=== PATIENT | male | born 1940 | race Caucasian/White ===

== ENCOUNTER 2016-12-20 14:15 | Emergency (ER) | payer OTHER ==
--- NOTE | 2016-12-20 14:27 | ER Document Report ---
ED Medical Screen (RME) - General Stated Complaint: DIFFICULTY BREATHING Mode of Arrival: Wheelchair Information source: Patient Notes: Patient presents to the emergency department with complaints of difficulty breathing. He reports he has trouble just walking across the floor. [facility] Denies chest pain I have greeted and performed a rapid initial assessment of this patient. A comprehensive ED assessment and evaluation of the patient, analysis of test results and completion of the medical decision making process will be conducted by additional ED providers. TRAVEL OUTSIDE OF THE [place] IN LAST 30 DAYS: No - Related Data Allergies/Adverse Reactions: tetracycline [Tetracycline] Allergy (Severe, Verified 12/20/16 14:24) Blisters Past Medical History - Past Medical History Cardiac Medical History: Reports: Hx Heart Attack - 1995, Hx Hypercholesterolemia, Hx Hypertension Denies: Hx Coronary Artery Disease Pulmonary Medical History: Reports: Hx COPD Denies: Hx Asthma, Hx Bronchitis, Hx Pneumonia, Hx Tuberculosis Neurological Medical History: Denies: Hx Cerebrovascular Accident, Hx Seizures Endocrine Medical History: Reports: Hx Diabetes Mellitus Type 2 GI Medical History: Denies: Hx Hepatitis, Hx Hiatal Hernia, Hx Ulcer Musculoskeltal Medical History: Denies Hx Arthritis Infectious Medical History: Denies: Hx Hepatitis Past Surgical History: Reports: Hx Appendectomy, Hx Bowel Surgery - ilestomy. Denies: Hx Open Heart Surgery, Hx Pacemaker - Immunizations Hx Diphtheria, Pertussis, Tetanus Vaccination: Yes Physical Exam - Vital signs Vitals: Temp Pulse Resp BP Pulse Ox 97.8 F 58 L 18 138/51 H 92 12/20/16 14:22 12/20/16 14:22 12/20/16 14:22 12/20/16 14:22 12/20/16 14:22 Course - Vital Signs Vital signs: Temp Pulse Resp BP Pulse Ox 97.8 F 58 L 18 138/51 H 92 12/20/16 14:22 12/20/16 14:22 12/20/16 14:22 12/20/16 14:22 12/20/16 14:22
[2016-12-20 15:13] LABS: ABSOLUTE BASOPHILS # (AUTO) 0.1 10^3/uL (0.0-0.2); ABSOLUTE EOSINOPHILS # (AUTO) 0.2 10^3/uL (0.0-0.6); ABSOLUTE LYMPHOCYTES (AUTO) 1.2 10^3/uL (0.5-4.7); ABSOLUTE MONOCYTES (AUTO) 0.5 10^3/uL (0.1-1.4); ABSOLUTE NEUT (AUTO) 5.2 10^3/uL (1.7-8.2); BASOPHILS % (AUTO) 0.8 % (0-2); EOSINOPHILS % (AUTO) 3.2 % (0-6); HEMATOCRIT 45.7 % (37.9-51.0); HGB HCT DIFFERENCE -3.7; LYMPHOCYTES % (AUTO) 17.3 % (13-45); MEAN CORPUSCULAR HEMOGLOBIN 26.6 pg (27.0-33.4); MEAN CORPUSCULAR HGB CONC 30.6 g/dL (32.0-36.0); MEAN CORPUSCULAR VOLUME 87 fl (80-97); MONOCYTES % (AUTO) 6.8 % (3-13); RED BLOOD COUNT 5.26 10^6/uL (4.35-5.55); RED CELL DISTRIBUTION WIDTH 17.6 % (11.5-14.0); SEGMENTED NEUTROPHILS % (AUTO) 71.9 % (42-78); WHITE BLOOD COUNT 7.2 10^3/uL (4.0-10.5)
[2016-12-20 15:34] LABS: ALANINE AMINOTRANSFERASE 46 U/L (21-72); ALBUMIN 3.8 g/dL (3.5-5.0); ALKALINE PHOSPHATASE 86 U/L (38-126); ANION GAP 13 (5-19); ASPARTATE AMINO TRANSFERASE 34 U/L (17-59); BILIRUBIN,TOTAL 0.6 mg/dL (0.2-1.3); BLOOD UREA NITROGEN 21 mg/dL (7-20); CALCIUM 8.6 mg/dL (8.4-10.2); CARBON DIOXIDE 32 mmol/L (22-30); CHLORIDE 98 mmol/L (98-107); CREATINE KINASE 107 U/L (55-170); CREATININE RESULT 1.34 mg/dL (0.52-1.25); GLUCOSE 157 mg/dL (75-110); POTASSIUM 3.5 mmol/L (3.6-5.0); SODIUM 142.8 mmol/L (137-145); TOTAL PROTEIN 7.1 g/dL (6.3-8.2)
[2016-12-20 15:46] LABS: CREATINE KINASE MB 1.62 ng/mL (<4.55); TROPONIN I 0.032 ng/mL
--- NOTE | 2016-12-20 17:30 | ER Document Report ---
ED General - General Chief Complaint: Breathing Difficulty Stated Complaint: DIFFICULTY BREATHING Mode of Arrival: Wheelchair Notes: This is a 76-year-old male who presents because [facility] and was told he needed to come to the ER because his lungs were filled up with fluid. Patient states that he has chronic shortness of breath but no change in his shortness of breath recently. He denies any chest pain. No fever. He states a slight chronic cough which is nonproductive. He did quit smoking for 10 years but began smoking again one year ago "in hopes that it would kill me". He complains of daily chronic pain for which she used to take narcotics [id number]. He states his [facility] will no longer prescribe and he only can take them at bedtime now. He denies feeling suicidal. He states he really wants to go home because he's been waiting so long and states he feels absolutely fine. TRAVEL OUTSIDE OF THE [place] IN LAST 30 DAYS: No - Related Data Allergies/Adverse Reactions: tetracycline [Tetracycline] Allergy (Severe, Verified 12/20/16 14:24) Blisters Past Medical History - General Information source: Patient - Social History Smoking Status: Current Every Day Smoker Chew tobacco use (# tins/day): No Frequency of alcohol use: None Drug Abuse: None Family History: Reviewed & Not Pertinent Patient has suicidal ideation: No Patient has homicidal ideation: No - Past Medical History Cardiac Medical History: Reports: Hx Heart Attack - 1995, Hx Hypercholesterolemia, Hx Hypertension Denies: Hx Coronary Artery Disease Pulmonary Medical History: Reports: Hx COPD Denies: Hx Asthma, Hx Bronchitis, Hx Pneumonia, Hx Tuberculosis Neurological Medical History: Denies: Hx Cerebrovascular Accident, Hx Seizures Endocrine Medical History: Reports: Hx Diabetes Mellitus Type 2 Renal/ Medical History: Denies: Hx Peritoneal Dialysis GI Medical History: Denies: Hx Hepatitis, Hx Hiatal Hernia, Hx Ulcer Musculoskeltal Medical History: Denies Hx Arthritis Infectious Medical History: Denies: Hx Hepatitis Past Surgical History: Reports: Hx Appendectomy, Hx Bowel Surgery - ilestomy. Denies: Hx Open Heart Surgery, Hx Pacemaker - Immunizations Hx Diphtheria, Pertussis, Tetanus Vaccination: Yes Review of Systems - Review of Systems Constitutional: denies: Fever, Malaise EENT: denies: Throat pain Cardiovascular: denies: Chest pain, Syncope Respiratory: See HPI Gastrointestinal: denies: Abdominal pain, Vomiting Musculoskeletal: Leg swelling Skin: denies: Rash Hematologic/Lymphatic: denies: Swollen glands Neurological/Psychological: denies: Numbness, Tingling Physical Exam - Vital signs Vitals: Temp Pulse Resp BP Pulse Ox 97.8 F 58 L 18 138/51 H 92 12/20/16 14:22 12/20/16 14:22 12/20/16 14:22 12/20/16 14:22 12/20/16 14:22 - General General appearance: Alert In distress: None Notes: Standing in the doorway, normally conversant, smiling and affable and in no acute respiratory distress - HEENT Head: Normocephalic Eyes: Normal, Other - Prominent arcus senilis Pupils: PERRL Nasal: Normal Mouth/Lips: Normal Mucous membranes: Normal Pharynx: Normal Neck: Normal - Respiratory Respiratory status: No respiratory distress Chest status: Nontender Breath sounds: Rales - Few scattered bibasilar rales - Cardiovascular Rhythm: Regular - Abdominal Inspection: Normal Tenderness: Nontender - Back Back: Normal - Extremities General upper extremity: Normal inspection, Normal strength General lower extremity: Edema, Other - Patient has Coban wrap bilaterally - Neurological Orientation: AAOx4 - Psychological Associated symptoms: Normal affect - Skin Skin Temperature: Warm Skin Moisture: Dry Skin Color: Normal Character of irregularity: Patchy Course - Re-evaluation Re-evalutation: 12/20/16 18:19 Patient states he is at his baseline and didn't want to come to the ER. He states [facility] told him to take an extra dose of Lasix this evening. He does not want to stay. He is well-appearing and ambulating without apparent respiratory difficulty. He states he will take the extra Lasix as he was directed and follow-up. - Vital Signs Vital signs: Temp Pulse Resp BP Pulse Ox 97.4 F 61 18 148/69 H 89 L 12/20/16 18:07 12/20/16 18:07 12/20/16 18:07 12/20/16 18:07 12/20/16 18:07 - Laboratory Result Diagrams: 12/20/16 14:35 12/20/16 14:35 Laboratory results interpreted by me: 0112/20/16 12/20/16 14:35 14:35 14:35 MCH 26.6 L MCHC 30.6 L RDW 17.6 H Plt Count 138 L Potassium 3.5 L Carbon Dioxide 32 H BUN 21 H Creatinine 1.34 H Est GFR (Non-Af Amer) 52 L Glucose 157 H NT-Pro-B Natriuret Pep 523 H - Diagnostic Test Radiology reviewed: Image reviewed, Reports reviewed - EKG Interpretation by Me EKG shows normal: Sinus rhythm Rate: Normal Rhythm: NSR - 60 Discharge - Discharge Clinical Impression: Shortness of breath Congestive heart failure (CHF) Qualifiers: Congestive heart failure type: unspecified congestive heart failure type Congestive heart failure chronicity: chronic Qualified Code(s): I50.9 - Heart failure, unspecified Condition: Stable Disposition: HOME, SELF-CARE Additional Instructions: take your Lasix as directed with an extra dose this evening. Follow up at the [facility]. REturn to ER if you are feeling more short of breath than your usual , develop chest pain or fever, or have any new concerns.
[2016-12-20 18:08] VITALS: BP 148/69
--- NOTE | 2016-12-20 19:24 | EKG REPORT ---
SEVERITY:- ABNORMAL ECG - SINUS RHYTHM FIRST DEGREE AV BLOCK LVH WITH IVCD AND SECONDARY REPOL ABNRM : Confirmed by: Danika Lenz MD 20-Dec-2016 19:22:57
== END 2016-12-20 18:07 | disposition home or self-care (01) ==
LOC: ER 14:15
DX: I11.0 Hypertensive heart disease with heart failure (principal); I50.9 Heart failure, unspecified; J44.9 Chronic obstructive pulmonary disease, unspecified; R06.02 Shortness of breath; I25.2 Old myocardial infarction; F17.200 Nicotine dependence, unspecified, uncomplicated; E11.9 Type 2 diabetes mellitus without complications; G89.29 Other chronic pain; Z79.891 Long term (current) use of opiate analgesic; Z88.1 Allergy status to other antibiotic agents; Z79.899 Other long term (current) drug therapy
CPT/HCPCS: 36415; 71020; 80053; 82550; 82553; 83880; 84484; 85025; 93005; 93010; 99285

== ENCOUNTER 2017-08-16 14:06 | Inpatient (IN) | payer OTHER, MEDICARE ==
--- NOTE | 2017-08-16 14:41 | ER Document Report ---
ED Extremity Problem, Lower - General Chief Complaint: Skin Problem Stated Complaint: LEFT FOOT PAIN Time Seen by Provider: 08/16/17 14:29 Notes: Patient is a 76-year-old male who suffers from type 2 diabetes, chronic venous stasis, diabetic neuropathy, hypertension, hyperlipidemia who presents emergency department after referral from the [facility] for diabetic ulcer in his left foot. Patient states that he goes to the [facility] every 6-8 weeks for evaluation of his feet and he states that he thinks that this wound is approximately 1 week old. He denies any pain, drainage, fevers, chills, lethargy. TRAVEL OUTSIDE OF THE [place] IN LAST 30 DAYS: No - Related Data Allergies/Adverse Reactions: tetracycline [Tetracycline] Allergy (Severe, Verified 08/16/17 14:13) Blisters Past Medical History - Social History Smoking Status: Current Every Day Smoker Family History: Reviewed & Not Pertinent - Past Medical History Cardiac Medical History: Reports: Hx Heart Attack - 1995, Hx Hypercholesterolemia, Hx Hypertension Denies: Hx Coronary Artery Disease Pulmonary Medical History: Reports: Hx COPD Denies: Hx Asthma, Hx Bronchitis, Hx Pneumonia, Hx Tuberculosis Neurological Medical History: Denies: Hx Cerebrovascular Accident, Hx Seizures Endocrine Medical History: Reports: Hx Diabetes Mellitus Type 2 Renal/ Medical History: Denies: Hx Peritoneal Dialysis GI Medical History: Denies: Hx Hepatitis, Hx Hiatal Hernia, Hx Ulcer Musculoskeltal Medical History: Denies Hx Arthritis Infectious Medical History: Denies: Hx Hepatitis Past Surgical History: Reports: Hx Appendectomy, Hx Bowel Surgery - ilestomy. Denies: Hx Open Heart Surgery, Hx Pacemaker - Immunizations Hx Diphtheria, Pertussis, Tetanus Vaccination: Yes Review of Systems - Review of Systems Constitutional: No symptoms reported Cardiovascular: No symptoms reported Respiratory: No symptoms reported Gastrointestinal: No symptoms reported Skin: See HPI Hematologic/Lymphatic: See HPI -: Yes All other systems reviewed and negative Physical Exam - Vital signs Vitals: Temp Pulse Resp BP Pulse Ox 99.9 F 94 19 133/57 H 88 L 08/16/17 14:08 08/16/17 14:08 08/16/17 14:08 08/16/17 14:08 08/16/17 14:08 - General General appearance: Appears well, Alert In distress: None - Respiratory Respiratory status: No respiratory distress Chest status: Nontender Breath sounds: Normal Chest palpation: Normal - Cardiovascular Rhythm: Regular Heart sounds: Normal auscultation, S1 appreciated, S2 appreciated Murmur: No Gallop: None auscultated Pulses: Normal: Radial, Dorsalis pedis Normal capillary refill: Yes - Extremities General lower extremity: Nontender, Edema, Normal ROM, Normal strength, Normal temperature, Normal weight bearing. No: Normal color - erythema, Jeff's sign - Skin Skin Temperature: Warm Skin Moisture: Dry Skin Color: Erythema, Ashen Skin Turgor: Edematous - 2+ Skin irregularity: other - ulceration with necrotic tissue Location of irregularity: Extremities - left foot Course - Re-evaluation Re-evalutation: 08/16/17 16:38 Patient is a 76-year-old male who is hemodynamically stable, no acute distress afebrile. Presentation is concerning for diabetic foot ulcer with concern for underlying osteomyelitis. Presentation on x-ray shows evidence of gas production and concern for osteomyelitis of the fifth metatarsal and phalanx. CBC shows mild elevation of white blood cell count with mild left shift. Otherwise CMP consistent with underlying CKD. Given concern for osteomyelitis and need for debridement, pes patient was discussed with Dr. Richards who agrees with n.p.o. and admission for surgical evaluation. Patient has received Invanz and Vanco for osteomyelitis. Patient is agreeable with plan. 08/16/17 18:13 Dr. Richards has evaluated the patient at the bedside who is recommending hospitalist admission and surgery to consult. Patient to be n.p.o. for surgery tomorrow for amputation of the left fifth metatarsal and phalanx due to concern for osteomyelitis and overlying cellulitis. 08/16/17 20:00 Patient has been accepted by hospitalist Dr. Patten for admission. - Vital Signs Vital signs: Temp Pulse Resp BP Pulse Ox 98.8 F 83 24 H 118/65 91 L 08/16/17 14:09 08/16/17 14:09 08/16/17 22:01 08/16/17 22:00 08/16/17 21:13 - Laboratory Result Diagrams: 08/16/17 15:21 08/16/17 15:21 Laboratory results interpreted by me: 08/16/17 08/16/17 08/16/17 15:21 15:21 15:21 WBC 16.4 H RDW 14.6 H Seg Neuts % (Manual) 87 H Lymphocytes % (Manual) 5 L Abs Neuts (Manual) 14.3 H Sodium 135.0 L Chloride 95 L BUN 29 H Creatinine 1.46 H Est GFR ( Amer) 57 L Est GFR (Non-Af Amer) 47 L Glucose 189 H Direct Bilirubin 0.5 H NT-Pro-B Natriuret Pep 3080 H Urine Protein Urine Glucose (UA) Urine Blood 08/16/17 19:09 WBC RDW Seg Neuts % (Manual) Lymphocytes % (Manual) Abs Neuts (Manual) Sodium Chloride BUN Creatinine Est GFR ( Amer) Est GFR (Non-Af Amer) Glucose Direct Bilirubin NT-Pro-B Natriuret Pep Urine Protein 100 H Urine Glucose (UA) 50 H Urine Blood MODERATE H - Diagnostic Test Radiology reviewed: Image reviewed, Reports reviewed Discharge - Discharge Clinical Impression: Ulcer of foot due to diabetes Qualifiers: Diabetic foot ulcer location: toe Diabetes mellitus type: type 2 Laterality: left Non-pressure ulcer stage: with necrosis of bone Qualified Code(s): E11.621 - Type 2 diabetes mellitus with foot ulcer Condition: Stable Disposition: ADMITTED INPATIENT
[2017-08-16] MEDS ORDERED: VANCOMYCIN HCL INJ 1000 MG VIAL IV ONE ×2 (15:12→19:29)
[2017-08-16] MEDS ORDERED: ERTAPENEM SODIUM INJ 1 GM VIAL IV ONE (15:12)
--- NOTE | 2017-08-16 15:30 | RADIOLOGY REPORT (SQ) ---
EXAM DESCRIPTION: FOOT LEFT COMPLETE COMPLETED DATE/TIME: 08/16/2017 3:16 pm REASON FOR STUDY: diabetic ulcer COMPARISON: None. NUMBER OF VIEWS: Three views. TECHNIQUE: AP, lateral and oblique radiographic images acquired of the left foot. LIMITATIONS: Artifact from sock treads FINDINGS: There is soft tissue gas surrounding the right 5th metatarsophalangeal joint. Underlying 5th metatarsal head and base proximal phalanx exhibits mild decreased bone density which likely indic ates early osteomyelitis. No fracture. Remainder of the bones of the left foot are otherwise unremarkable. Diffuse forefoot soft tissue swelling IMPRESSION: Soft tissue gas surrounding the right 5th metatarsophalangeal joint worrisome for infect ion. Decreased bony density of the 5th metatarsal head and base left 5th toe proximal phalanx worrisome fo r osteomyelitis. TECHNICAL DOCUMENTATION: JOB ID: [id number] [employer]- All Rights Reserved
[2017-08-16 15:37] LABS: HEMATOCRIT 42.5 % (37.9-51.0); HEMOGLOBIN 14.6 g/dL (13.5-17.0); HGB HCT DIFFERENCE 1.3; MEAN CORPUSCULAR HEMOGLOBIN 32.2 pg (27.0-33.4); MEAN CORPUSCULAR HGB CONC 34.3 g/dL (32.0-36.0); MEAN CORPUSCULAR VOLUME 94 fl (80-97); RED BLOOD COUNT 4.52 10^6/uL (4.35-5.55); RED CELL DISTRIBUTION WIDTH 14.6 % (11.5-14.0); WHITE BLOOD COUNT 16.4 10^3/uL (4.0-10.5)
[2017-08-16 15:52] LABS: ALANINE AMINOTRANSFERASE 27 U/L (21-72); ALBUMIN 3.9 g/dL (3.5-5.0); ALKALINE PHOSPHATASE 71 U/L (38-126); ANION GAP 14 (5-19); ASPARTATE AMINO TRANSFERASE 22 U/L (17-59); BILIRUBIN,DIRECT 0.5 mg/dL (0.0-0.4); BLOOD UREA NITROGEN 29 mg/dL (7-20); CALCIUM 9.2 mg/dL (8.4-10.2); CARBON DIOXIDE 26 mmol/L (22-30); CHLORIDE 95 mmol/L (98-107); CREATININE RESULT 1.46 mg/dL (0.52-1.25); GLUCOSE 189 mg/dL (75-110); POTASSIUM 4.8 mmol/L (3.6-5.0); TOTAL PROTEIN 7.2 g/dL (6.3-8.2)
[2017-08-16 16:00] LABS: BASOPHILS % (MANUAL) 1 % (0-2); EOSINOPHILS % (MANUAL) 0 % (0-6); LYMPHOCYTES % (MANUAL) 5 % (13-45); TOTAL CELLS COUNTED 100
[2017-08-16 16:01] LABS: ANISOCYTOSIS SLIGHT; TOXIC GRANULATION SLIGHT
[2017-08-16] MEDS ORDERED: MORPHINE SULFATE 10 MG/ML INJ IV ONE (17:29)
[2017-08-16] MEDS ORDERED: NORMAL SALINE 1000 ML 1,000 ML IV PRN (18:13)
--- NOTE | 2017-08-16 18:37 | RADIOLOGY REPORT (SQ) ---
EXAM DESCRIPTION: CHEST SINGLE VIEW COMPLETED DATE/TIME: 08/16/2017 6:27 pm REASON FOR STUDY: CHF COMPARISON: 12/20/2016 EXAM PARAMETERS: NUMBER OF VIEWS: One view. TECHNIQUE: Single frontal radiographic view of the chest acquired. RADIATION DOSE: NA LIMITATIONS: None. FINDINGS: LUNGS AND PLEURA: Stable chronic lung change without opacities, masses or pneumothorax. No pleural effusion. MEDIASTINUM AND HILAR STRUCTURES: No masses. Contour normal. HEART AND VASCULAR STRUCTURES: Heart stable in size. Normal vasculature. BONES: No acute findings. HARDWARE: Stable position right-sided port. OTHER: No other significant finding. IMPRESSION: NO ACUTE RADIOGRAPHIC FINDING IN THE CHEST. NO SIGNIFICANT CHANGE FROM PRIOR STUDY. TECHNICAL DOCUMENTATION: JOB ID: [id number]
[2017-08-16 19:28] LABS: APPEARANCE,URINE CLEAR; BILIRUBIN,URINE NEGATIVE (NEGATIVE); GLUCOSE, URINE 50 mg/dL (NEGATIVE); KETONES,URINE NEGATIVE (NEGATIVE); LEUKOCYTE ESTERASE,URINE NEGATIVE (NEGATIVE); NITRITE,URINE NEGATIVE (NEGATIVE); PROTEIN,URINE 100 mg/dL (NEGATIVE); UROBILINOGEN,URINE NEGATIVE mg/dL (<2.0)
[2017-08-16] MEDS ORDERED: DEXTROSE 50%-WATER 25 GM/50 ML DISP.SYRIN IV PRN ×2 (20:47)
[2017-08-16] MEDS ORDERED: NICOTINE 21 MG/24 HR PATCH.TD24 TD PRN (20:47)
[2017-08-16] MEDS ORDERED: DEXTROSE 40% GEL 15 GM TUBE PO PRN ×2 (20:47)
[2017-08-16] MEDS ORDERED: GLUCAGON,HUMAN RECOMB 1 MG INJ IM PRN (20:47)
[2017-08-16] MEDS ORDERED: PROMETHAZINE HCL 25 MG TABLET PO PRN (20:48)
[2017-08-16] MEDS ORDERED: VANCOMYCIN HCL 0 MG in DEXTROSE 5%-WATER 250 ML IV NR (21:00)
[2017-08-16 21:15] LABS: ADD ON TESTING BLD IN LAB ACKNOWLEDGE
--- NOTE | 2017-08-16 21:21 | PDOC H&P ---
History of Present Illness Admission Date/PCP: 08/16/17 17:02 [facility] Patient complains of: Left foot ulcer History of Present Illness: DARIUS BREWER is a 76 year old morbidly obese male with underlying type 1 diabetes mellitus, diabetic peripheral neuropathy, hypertension, hyperlipidemia, coronary artery disease, suspected history of DVT with patient being on six-month regimen of Coumadin several years ago, followed at the [facility] every 6-8 weeks for foot problems. Seen in the clinic today for evaluation of the left foot ulcer the patient states came up approximately a week ago. When an infection was noted, he was sent to the emergency room from their clinic for further evaluation and treatment. Prior to my being called, the patient has been seen and evaluated by the on- call general surgeon, Dr. Richards. Reportedly his plans are to take the patient to the operating room for amputation of the left little toe along with debridement of the area of infection. Patient has been discussed with the day hospitalist who discussed the patient with the emergency room nurse practitioner who evaluated the patient. Patient describes redness swelling and intermittent prominent sharp pain in the area of concern, in particular with ambulation. Normally ambulates with walker. He denies nausea vomiting, fever or chills, chest or abdominal pain. Dictation via voice recognition software. Laboratory results are listed in [employer] and are reviewed. X-ray summary results are listed below, with full report(s) reviewed. . Social history/personal habits: Single. No children. Lives alone. Retired. One pack of cigarettes per day. No alcohol or illicit drug use. Allergies/adverse reactions are listed in [employer] and are reviewed. Home medications initially autopopulated into [employer] may not accurately reflect patient's true medications, dosages, and/or frequencies. 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 Patient states he takes 54 units of Lantus twice a day. Unfortunately, patient not certain of all medications/dosages/frequencies. REVIEW OF SYSTEMS: Constitutional: No fever or chills. Eyes: Wears glasses. ENT: No swallowing problems or complaints. Partial hearing loss. Pulmonary: No current complaints. Cardiovascular: No current complaints, including chest pain. Gastrointestinal: No current complaints, including nausea or vomiting. Skin: See history and present illness. Hematologic: Denies easy bruising. Neurologic: Chronic peripheral diabetic neuropathy involving his lower extremities. Musculoskeletal: Joint pain from arthritis. See history and present illness. Psychiatric: Mild anxiety and depression. Denies suicidal or homicidal ideation. Endocrine: No current complaints, including polyuria. Genitourinary: No current complaints, including dysuria. PHYSICAL EXAMINATION: 5 feet 11 inches tall. 134.5 kg. BMI 41.4 kg/m. Blood pressure 129/59. Respirations are 16 and unlabored. Pulse 76 and regular. 92% saturation on room air. Temperature 98.8; 99.9 earlier. Morbidly obese chronically ill-appearing male who nevertheless appears approximately his stated age. Awake alert pleasant and cooperative. Appears to feel a bit under the weather, so to speak. Skin is warm and dry. No grossly obvious evidence of rash in areas of skin examined. No subcutaneous nodules palpated. Extensive changes of stasis dermatitis involving both lower extremities, perhaps a bit more noticeable on the right lower extremity. ENT: Mildly hard of hearing to normal conversation. Tongue midline on protrusion pink and slightly tacky. Eyes: No scleral icterus. Pupils equal and reactive to light at 4 mm. [place] conjunctivae. Neck is supple and nontender to gentle active range of motion and palpation. Midline trachea. No palpable thyroid nodule mass enlargement or tenderness. Lymphatic: No palpable cervical or clavicular nodes. Neck and lymphatic exams limited by patient body habitus. Psychiatric: Reasonable insight into acute and chronic medical issues. Oriented to time location and why here. Lungs: Auscultation reveals clear and equal breath sounds bilaterally. No use of accessory respiratory muscles. Cardiovascular: Heart regular rate and rhythm, without gallop murmur or rub. No carotid or abdominal aortic bruits. Mild bilateral slightly pitting symmetric lower calf, ankle, and pedal edema. Examination of left foot somewhat limited due to the dressing in place, which is clean dry and intact and is left in place. Not sure I can palpate right dorsalis pedis or posterior tibial pulses on either side, but both feet are warm and dry, with excellent capillary refill at left great toe and right toes. Abdomen:soft obese nontender with positive bowel sounds. Unable to adequately evaluate abdomen for masses or organomegaly due to body habitus. Extremities: Feet are warm and dry. No calf tenderness to compression. Gentle manipulation of lower extremities fails to reveal any obvious evidence of injury or instability to knees hips or ankles. Has mild inflammation extending from the distal half of the lower left leg through the foot. No crepitus fluctuance or expressible discharge. Neurologic: Moves upper extremities grossly normally. Patellar reflexes absent. Absent right Babinski; dressing limits left foot exam. Light touch decreased at feet, a chronic finding, without recent change, per patient. Dorsiflexion and plantarflexion of feet 5 / 5 and symmetric. 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 Denies: Hemorrhagic CVA, Ischemic CVA, Seizures Endocrine Medical History: Reports: Diabetes Mellitus Type 1 Denies: Diabetes Mellitus Type 2, Hyperthyroidism, Hypothyroidism Renal/ Medical History: Reports: Chronic Kidney Disease, Other - Chronic kidney disease stage III by review of labs Malignancy Medical History: Reports: Colorectal Cancer - Status post low anterior resection, Skin Cancer GI Medical History: Denies: Cirrhosis, Gastroesophageal Reflux Disease, Hepatitis, Hiatal Hernia , Peptic Ulcer Disease Musculoskeltal Medical History: Reports: Arthritis Psychiatric Medical History: Reports: General Anxiety Disorder, Tobacco Dependency Denies: Alcohol Dependency, Substance Abuse Hematology: Infectious Medical History: Denies: Hepatitis B, Hepatitis C Past Surgical History Past Surgical History: Reports: Appendectomy, Ileostomy - After low anterior resection for carcinoma Social History Information Source: Patient, Emergency Med Personnel, [facility] Records Lives with: Alone Smoking Status: Current Every Day Smoker Frequency of Alcohol Use: None Hx Recreational Drug Use: No Drugs: None Hx Prescription Drug Abuse: No - Advance Directive Resuscitation Status: Full Code Surrogate healthcare decision maker:: Sister Nicolette Ma Family History Family History: Reviewed & Not Pertinent Parental Family History Reviewed: Yes - Father of renal failure; uncertain cause of mother's Children Family History Reviewed: NA Sibling(s) Family History Reviewed.: Yes Medication/Allergy Home Medications: Atorvastatin Calcium [Lipitor 40 mg Tablet] 40 mg PO QPM 08/17/17 Insulin Glargine,Hum.rec.anlog [Lantus Insulin 100 Unit/1 ml 10 ml] 54 unit SUBCUT Q12 08/17/17 Pentazocine HCl/Naloxone HCl [[place]win Nx Tablet] 1 tab PO TID 08/17/17 Potassium Chloride [Klor-Con 10 Meq Tablet.sa] 10 meq PO BID 08/17/17 RX: Cyanocobalamin (Vitamin B-12) [Vitamin B-12 1000 mcg Tablet] 1,000 mcg PO DAILY 08/17/17 RX: Docusate Sodium 240 mg PO BID 08/17/17 RX: Furosemide [Lasix 40 mg Tablet] 40 mg PO BID 08/17/17 RX: Metoprolol Tartrate [Lopressor 50 mg Tablet] 50 mg PO Q12 08/17/17 RX: Pregabalin [Lyrica 100 mg Capsule] 100 mg PO Q8 08/17/17 Allergies/Adverse Reactions: tetracycline [Tetracycline] Allergy (Severe, Verified 08/16/17 14:13) Blisters Physical Exam Vital Signs: Temp Pulse Resp BP Pulse Ox 98.8 F 83 20 159/56 H 94 08/16/17 14:09 08/16/17 14:09 08/16/17 14:09 08/16/17 14:09 08/16/17 14:09 Results Laboratory Results: 08/16/17 08/16/17 18:45 19:09 Lactic Acid 1.6 Urine Color YELLOW Urine Appearance CLEAR Urine pH 5.0 Ur Specific [place] 1.010 Urine Protein 100 H Urine Glucose (UA) 50 H Urine Ketones NEGATIVE Urine Blood MODERATE H Urine Nitrite NEGATIVE Ur Leukocyte Esterase NEGATIVE Urine WBC (Auto) 0 Urine RBC (Auto) 1 Impressions: Foot X-Ray 08/16/17 14:40 IMPRESSION: Soft tissue gas surrounding the right 5th metatarsophalangeal joint worrisome for infection. Decreased bony density of the 5th metatarsal head and base left 5th toe proximal phalanx worrisome for osteomyelitis. Chest X-Ray 08/16/17 18:12 IMPRESSION: NO ACUTE RADIOGRAPHIC FINDING IN THE CHEST. NO SIGNIFICANT CHANGE FROM PRIOR STUDY. Assessment & Plan - Diagnosis (1) Diabetic infection of left foot Is this a current diagnosis for this admission?: Yes Plan: Surgery has seen and evaluated the patient, with plans to take patient to operating room tomorrow for amputation of left little toe and debridement of left foot, per patient. Zosyn and intravenous vancomycin, with pharmacy to assist with dosing. I have strongly encouraged patient not to get out of bed without notifying staff , to avoid a fall with injury. Knee high SCD, right lower extremity only, for DVT prophylaxis, along with subcutaneous heparin. Impression and plans were discussed with patient, who concurs. Time spent in evaluation and management of patient: 78 minutes. (2) CAD (coronary artery disease) Qualifiers: Coronary Disease-Associated Artery/Lesion type: [place] artery [place] vs. transplanted heart: [place] heart Associated angina: without angina Qualified Code(s): I25.10 - Atherosclerotic heart disease of [place] coronary artery without angina pectoris Is this a current diagnosis for this admission?: No Plan: Resume home medications as appropriate once these have been determined and reviewed. (3) CKD (chronic kidney disease), stage III Is this a current diagnosis for this admission?: Yes (4) COPD (chronic obstructive pulmonary disease) Qualifiers: COPD type: unspecified COPD Qualified Code(s): J44.9 - Chronic obstructive pulmonary disease, unspecified Is this a current diagnosis for this admission?: Yes Plan: No evidence of acute exacerbation of same. Resume home medications as appropriate once these have been determined and reviewed. (5) HLD (hyperlipidemia) Qualifiers: Hyperlipidemia type: unspecified Qualified Code(s): E78.5 - Hyperlipidemia , unspecified Is this a current diagnosis for this admission?: Yes Plan: Resume home medications as appropriate once these have been determined and reviewed. (6) HTN (hypertension) Qualifiers: Hypertension type: essential hypertension Qualified Code(s): I10 - Essential (primary) hypertension Is this a current diagnosis for this admission?: Yes Plan: Resume home medications as appropriate once these have been determined and reviewed. (7) Morbid obesity with BMI of 40.0-44.9, adult Is this a current diagnosis for this admission?: Yes Plan: Dietary consult. (8) Tobacco dependency Is this a current diagnosis for this admission?: Yes Plan: As needed nicotine patch. - Time Time Spent: Greater than 70 Minutes Medications reviewed and adjusted accordingly: No - Patient uncertain of most medications. Anticipated discharge: Home Within: Other - Inpatient Certification Based on my medical assessment, after consideration of the patient's comorbidities, presenting symptoms, or acuity I expect that the services needed warrant INPATIENT care.: Yes I certify that my determination is in accordance with my understanding of Medicare's requirements for reasonable and necessary INPATIENT services [42 CFR 412.3e].: Yes Medical Necessity: Need for IV Antibiotics, Need for Surgery, Risk of Diagnosis Which Will Require Inpatient Eval/Care/Monitoring Post Hospital Care: D/C or Transfer Summary
[2017-08-16 21:29] LABS: MAGNESIUM 1.8 mg/dL (1.6-2.3)
[2017-08-16] MEDS: INSULIN LISPRO 100 UNIT/ML 3 ML VIAL SUBCUT PRN (22:40)
[2017-08-16] MEDS: INSULIN GLARGINE,HUM.REC.ANLOG 1,000 UNIT/10 ML UNIT SUBCUT SCH (23:58)
[2017-08-16] MEDS: HEPARIN SOD (PORCINE) 5,000 UNIT/ML 1 ML SYRINGE SUBCUT SCH (23:58)
--- NOTE | 2017-08-16 23:58 | CONSULTATION REPORT E ---
Consultation Report NAME: DARIUS BREWER : 1940 AGE: 76Y DATE: 08/16/2017 427 A TO: JORDAN PAEZ M.D. FROM: ASAD PERALTA M.D. Requesting Physician REASON FOR CONSULTATION: Patient with diabetic left foot ulcer with gas on x-ray around the head of the left fifth metatarsal and proximal phalanx of the fifth toe. HISTORY OF PRESENT ILLNESS: This 76-year-old male with history of type 2 diabetes, chronic venous stasis, diabetic neuropathy, hypertension, hyperlipidemia presented to the emergency room after referral from the [place] for the diabetic ulcer on his left foot. Patient thinks the left foot ulcer has been there only for about a week. Denies any pains, fever or chills or drainage from the left foot. ALLERGIES: TETRACYCLINE. FAMILY HISTORY: Reviewed and not pertinent. PAST MEDICAL HISTORY: Cardiac history. Reports heart attack in 1995, hypercholesterolemia, history of hypertension. PULMONARY MEDICAL HISTORY: Reports history of COPD but still smokes about a pack a day though just started about a year ago. NEUROLOGICAL MEDICAL HISTORY: Denies any CVA or seizures. ENDOCRINE HISTORY: Reports diabetes mellitus type 2. RENAL: Denies peritoneal dialysis. GI/ HISTORY: Denies hepatitis, hiatal hernia and ulcer. Patient wears a colostomy. MUSCULOSKELETAL HISTORY: Denies arthritis. Admits to having some back problems. Did have back surgery in the past. INFECTIOUS MEDICAL HISTORY: Denies hepatitis. PAST SURGICAL HISTORY: Reports appendectomy, bowel surgery with ileostomy, denies history of open heart surgery or pacemaker. IMMUNIZATIONS: DPT vaccination. REVIEW OF SYSTEMS: CONSTITUTIONAL: No symptoms reported. CARDIOVASCULAR: No symptoms reported. RESPIRATORY: No symptoms reported though he gets short of breath when he lies flat on bed. GASTROINTESTINAL: No symptoms reported. SKIN: See HPI. HEMATOLOGIC/LYMPHATIC: See HPI. PHYSICAL EXAM: VITAL SIGNS: Temperature 98.8 degrees Fahrenheit, pulse 83 per minute, respiratory rate 30 per minute, BP of 159/56. Pulse ox is 94% on room air. GENERAL APPEARANCE: Appears well and alert in no apparent acute distress. RESPIRATORY: No respiratory distress. LUNGS: Lungs were clear. CARDIOVASCULAR: Regular rhythm. EXTREMITIES: Pulses normal. Radial dorsalis pedis pulses. Normal capillary refill *------*. General lower extremity nontender, edematous lower extremities. Normal weightbearing. SKIN: Skin temperature is warm. Skin moisture is dry. Color erythema. *------* skin regularity. Ulceration with necrotic tissue of the left foot, plantar aspect. He has an ulcer about 1-1/2 cm on the plantar area opposite the fifth metatarsal head. The left fifth toe was slightly dusky and the anterior aspect of the foot is dark and poor capillary refill. The rest of the fifth toe has fairly good capillary refill. It is nontender. Patient has been anesthetic of the feet due to his diabetes. He has a foot drop on the left foot because of a previous surgery on his left area. The foot itself is somewhat edematous and erythematous on the dorsal aspect of the distal foot. He has good Doppler flows in both left dorsal pedis arteries and the left posterior tibia arteries though quite difficult to palpate the pulses because of the thickened area on the left wrist. IMPRESSION: 1. Cellulitis of the left foot. 2. Diabetes mellitus. 3. Starting abscess of the left foot with osteomyelitis of the left fifth toe metatarsal head. PLAN: 1. Start him on IV antibiotics which already started in the ER with Invanz and vancomycin. 2. Keep him n.p.o. from midnight and hydrate him with normal saline. 3. Repeat the blood work in a.m. and possible amputation left fifth toe on the left fifth metatarsal head. DICTATING PHYSICIAN: JORDAN PAEZ M.D. [id number] PHY#: [id number] ID: [id number] JOB#: [id number] ACCT: [id number] cc:JORDAN PAEZ M.D. >
[2017-08-17] MEDS ORDERED: PIPERACILLIN SODIUM/TAZOBACTAM 4.5 GM in NORMAL SALINE 100 ML IV SCH ×2
[2017-08-17] MEDS: PIPERACILLIN SODIUM/TAZOBACTAM 3.375 GM in DEXTROSE 5%-WATER 100 ML IV SCH ×5 (00:07→23:33)
[2017-08-17] MEDS ORDERED: NORMAL SALINE 1000 ML 1,000 ML IV PRN ×3 (01:28→21:26)
[2017-08-17] MEDS: IPRATROPIUM/ALBUTEROL 0.5-2.5 MG/3 ML AMPUL NEB PRN (01:47)
[2017-08-17 05:19] LABS: ABSOLUTE LYMPHOCYTES (AUTO) 0.9 10^3/uL (0.5-4.7); ABSOLUTE MONOCYTES (AUTO) 1.6 10^3/uL (0.1-1.4); ABSOLUTE NEUT (AUTO) 13.2 10^3/uL (1.7-8.2); BASOPHILS % (AUTO) 0.3 % (0-2); EOSINOPHILS % (AUTO) 0.3 % (0-6); HEMOGLOBIN 13.7 g/dL (13.5-17.0); HGB HCT DIFFERENCE 0.1; LYMPHOCYTES % (AUTO) 5.7 % (13-45); MEAN CORPUSCULAR HEMOGLOBIN 31.5 pg (27.0-33.4); MEAN CORPUSCULAR HGB CONC 33.4 g/dL (32.0-36.0); MEAN CORPUSCULAR VOLUME 94 fl (80-97); MONOCYTES % (AUTO) 10.3 % (3-13); RED BLOOD COUNT 4.35 10^6/uL (4.35-5.55); RED CELL DISTRIBUTION WIDTH 14.9 % (11.5-14.0); SEGMENTED NEUTROPHILS % (AUTO) 83.4 % (42-78); WHITE BLOOD COUNT 15.8 10^3/uL (4.0-10.5)
[2017-08-17] MEDS: HEPARIN SOD (PORCINE) 5,000 UNIT/ML 1 ML SYRINGE SUBCUT SCH ×3 (05:36→23:32)
[2017-08-17] MEDS: VANCOMYCIN HCL 1,000 MG in DEXTROSE 5%-WATER 250 ML IV SCH ×2 (06:36→18:18)
[2017-08-17 06:59] LABS: ANION GAP 13 (5-19); BLOOD UREA NITROGEN 29 mg/dL (7-20); CALCIUM 8.8 mg/dL (8.4-10.2); CARBON DIOXIDE 22 mmol/L (22-30); CHLORIDE 98 mmol/L (98-107); CREATININE RESULT 1.42 mg/dL (0.52-1.25); GLUCOSE 186 mg/dL (75-110); POTASSIUM 4.1 mmol/L (3.6-5.0)
[2017-08-17] MEDS: INSULIN GLARGINE,HUM.REC.ANLOG 1,000 UNIT/10 ML UNIT SUBCUT SCH ×2 (09:31→23:24)
[2017-08-17] MEDS: DOCUSATE SODIUM 100 MG CAPSULE PO SCH ×2 (09:32→18:17)
[2017-08-17] MEDS ORDERED: PROMETHAZINE HCL INJ 25 MG/1 ML VIAL IV PRN (10:17)
[2017-08-17] MEDS ORDERED: FENTANYL CITRATE INJ/PF 100 MCG/2 ML AMPUL IV PRN ×3 (10:17)
[2017-08-17] MEDS ORDERED: MORPHINE SULFATE 10 MG/ML INJ IV PRN ×3 (10:17→21:18)
[2017-08-17] MEDS ORDERED: DIPHENHYDRAMINE HCL 50 MG/ML VIAL IV PRN (10:17)
[2017-08-17] MEDS ORDERED: LIDOCAINE 0.5% INJ-PF (5 MG/ML) 50 ML SDV ONE (10:22)
[2017-08-17] MEDS ORDERED: FENTANYL CITRATE INJ/PF 100 MCG/2 ML AMPUL ONE (10:31)
[2017-08-17] MEDS ORDERED: PROPOFOL INJ 200 MG/20 ML VIAL IV ONE (10:31)
[2017-08-17] MEDS ORDERED: MIDAZOLAM 2 MG/2 ML INJ ONE ×2 (10:31)
[2017-08-17] MEDS ORDERED: KETAMINE HCL INJ 500 MG/10 ML VIAL ONE (10:33)
[2017-08-17] MEDS ORDERED: OXYCODONE-ACETAMINOPHEN 5-325 MG TABLET PO PRN ×2 (12:11→21:18)
--- NOTE | 2017-08-17 13:43 | OPERATIVE REPORT E ---
Operative Report NAME: DARIUS BREWER : 1940 AGE: 76Y DATE OF SURGERY: ROOM: 427 PREOPERATIVE DIAGNOSIS: Abscess of the left foot with an ulcer opposite the 5th metatarsal bone area with osteomyelitis of the head of the metatarsal bone #5. OPERATION: Amputation of the left 5th toe and amputation of the distal metatarsal bone, including the head of the metatarsal #5 and extensive debridement. SURGEON: JORDAN PAEZ M.D. ANESTHESIA: Local MAC. INDICATION: This is a 76-year-old diabetic male who noted an ulcer along the left plantar area opposite the 5th metatarsal bone. He had an x-ray of the left foot, which showed gas in the left 5th metatarsophalangeal joint area with evidence of osteomyelitis of the head of the metatarsal bone #5. Because of this, patient is scheduled for amputation of the left 5th metatarsal bone on the 5th toe areas. PROCEDURE: After adequate IV sedation, the left foot was then prepped and draped in the usual sterile fashion. An incision was made surrounding the 5th toe towards the area of the ulcer, encircling the ulcer. Prior to making the incision, local anesthesia was infiltrated around this site. The 5th toe was amputated at the joint. There was some necrotic tissue around the area that was further sharply debrided. There appeared to be a cavity anterior and medial to the 5th metatarsal bone. Because of this, the incision was extended further distal and lateral to the 5th metatarsal. Next, a periosteal elevator was then used to clean the 5th metatarsal bone. It was subsequently divided with a bone cutter just below the MT head The bone was further divided with the use of a rongeur down to the midshaft, this practically down to the area of the cavity with the bone being hard at this point where there is no evidence of osteomyelitis Further debridement of necrotic tissue around the area was done. A few tendons were pulled up and cut. All necrotic tissue was debrided to fairly good normal tissues. Cultures were obtained. Next, the cavity at this point measured about 8 cm long x 3 cm wide x 2 cm deep. There was some bleeding noted around the dermis and subcutaneous and around the connective tissues that was then controlled with cautery. The area was then irrigated with saline solution and after adequate hemostasis noted, the area was subsequently packed with 1/4-inch iodoform gauze. A single suture of 3-0 nylon was placed at the middle of the incision to keep the packing in place. Sterile 4 x 4's and Kerlix were used to cover the wound. Patient tolerated the procedure well. Needle, instrument, sponge counts were all correct, and estimated blood loss about 30 mL. Patient tolerated the procedure well and brought to the recovery room in satisfactory condition. DICTATING PHYSICIAN: JORDAN PAEZ M.D. [id number] PHY#: [id number] ID: [id number] JOB#: [id number] ACCT: [id number] cc:JORDAN PAEZ M.D. > MTDD
--- NOTE | 2017-08-17 17:03 | EKG REPORT ---
SEVERITY:- ABNORMAL ECG - SINUS RHYTHM FIRST DEGREE AV BLOCK LVH WITH IVCD AND SECONDARY REPOL ABNRM : Confirmed by: Ezra Pollard MD 17-Aug-2017 17:03:00
--- NOTE | 2017-08-17 17:40 | PDOC PROGRESS REPORT ---
Subjective Progress Note for:: 08/17/17 Subjective:: Patient complains of pain in the left foot where he had surgery today. Physical Exam Vital Signs: Temp Pulse Resp BP Pulse Ox 98.2 F 86 28 H 127/56 H 96 08/17/17 12:24 08/17/17 12:24 08/17/17 12:24 08/17/17 12:24 08/17/17 12:24 Intake & Output 08/16/17 08/17/17 08/18/17 06:59 06:59 06:59 Intake Total 1215 1350 Output Total 650 Balance 1215 700 General appearance: PRESENT: no acute distress Eye exam: PRESENT: conjunctiva pink. ABSENT: scleral icterus Ear exam: PRESENT: normal external ear exam Mouth exam: PRESENT: moist, tongue midline Neck exam: ABSENT: JVD Respiratory exam: PRESENT: wheezes - Right-sided expiratory wheezes. ABSENT: rales, rhonchi Cardiovascular exam: PRESENT: RRR, systolic murmur - 3/6 systolic murmur.. ABSENT: diastolic murmur, rubs GI/Abdominal exam: PRESENT: normal bowel sounds, soft. ABSENT: distended, guarding, mass, organolmegaly, rebound, tenderness Extremities exam: PRESENT: other - Dressing in place on the left foot.. ABSENT : calf tenderness, clubbing, pedal edema Neurological exam: PRESENT: alert, awake, oriented to person, oriented to place , oriented to time, oriented to situation, CN II-XII grossly intact. ABSENT: motor sensory deficit Psychiatric exam: PRESENT: appropriate affect Skin exam: PRESENT: other - Dressing in place on the left foot. Results Laboratory Results: 08/17/17 04:16 08/17/17 06:37 08/17/17 08/17/17 08/17/17 04:16 04:16 06:37 WBC 15.8 H RBC 4.35 Hgb 13.7 Hct 41.0 MCV 94 MCH 31.5 MCHC 33.4 RDW 14.9 H Plt Count 132 L Seg Neutrophils % 83.4 H Lymphocytes % 5.7 L Monocytes % 10.3 Eosinophils % 0.3 Basophils % 0.3 Absolute Neutrophils 13.2 H Absolute Lymphocytes 0.9 Absolute Monocytes 1.6 H Absolute Eosinophils 0.0 Absolute Basophils 0.0 Sodium Cancelled 133.0 L Potassium Cancelled 4.1 Chloride Cancelled 98 Carbon Dioxide Cancelled 22 Anion Gap Cancelled 13 BUN Cancelled 29 H Creatinine Cancelled 1.42 H Est GFR ( Amer) Cancelled 59 L Est GFR (Non-Af Amer) Cancelled 48 L Glucose Cancelled 186 H Calcium Cancelled 8.8 Impressions: Foot X-Ray 08/16/17 14:40 IMPRESSION: Soft tissue gas surrounding the right 5th metatarsophalangeal joint worrisome for infection. Decreased bony density of the 5th metatarsal head and base left 5th toe proximal phalanx worrisome for osteomyelitis. Chest X-Ray 08/16/17 18:12 IMPRESSION: NO ACUTE RADIOGRAPHIC FINDING IN THE CHEST. NO SIGNIFICANT CHANGE FROM PRIOR STUDY. Assessment & Plan - Diagnosis (1) Diabetic infection of left foot Is this a current diagnosis for this admission?: Yes Plan: Patient had surgery in the left foot today. Will continue with antibiotics. (2) CAD (coronary artery disease) Qualifiers: Coronary Disease-Associated Artery/Lesion type: [place] artery [place] vs. transplanted heart: [place] heart Associated angina: without angina Qualified Code(s): I25.10 - Atherosclerotic heart disease of [place] coronary artery without angina pectoris Is this a current diagnosis for this admission?: Yes Plan: Denies any chest pain. (3) CKD (chronic kidney disease), stage III Is this a current diagnosis for this admission?: Yes Plan: Patient is euvolemic. (4) COPD (chronic obstructive pulmonary disease) Qualifiers: COPD type: unspecified COPD Qualified Code(s): J44.9 - Chronic obstructive pulmonary disease, unspecified Is this a current diagnosis for this admission?: Yes Plan: Patient has some wheezing. Will give nebulizers as needed. (5) HLD (hyperlipidemia) Qualifiers: Hyperlipidemia type: unspecified Qualified Code(s): E78.5 - Hyperlipidemia , unspecified Is this a current diagnosis for this admission?: Yes (6) HTN (hypertension) Qualifiers: Hypertension type: essential hypertension Qualified Code(s): I10 - Essential (primary) hypertension Is this a current diagnosis for this admission?: Yes Plan: Stable. (7) Morbid obesity with BMI of 40.0-44.9, adult Is this a current diagnosis for this admission?: Yes - Time Time Spent with patient: 25-34 minutes - Inpatient Certification Medical Necessity: Need for IV Antibiotics
[2017-08-17] MEDS: INSULIN LISPRO 100 UNIT/ML 3 ML VIAL SUBCUT PRN (18:48)
[2017-08-18] MEDS: PIPERACILLIN SODIUM/TAZOBACTAM 3.375 GM in DEXTROSE 5%-WATER 100 ML IV SCH ×2 (05:29→12:59)
[2017-08-18] MEDS: HEPARIN SOD (PORCINE) 5,000 UNIT/ML 1 ML SYRINGE SUBCUT SCH ×3 (05:30→22:16)
[2017-08-18 05:58] LABS: ABSOLUTE BASOPHILS # (AUTO) 0.1 10^3/uL (0.0-0.2); ABSOLUTE EOSINOPHILS # (AUTO) 0.1 10^3/uL (0.0-0.6); ABSOLUTE LYMPHOCYTES (AUTO) 0.7 10^3/uL (0.5-4.7); ABSOLUTE MONOCYTES (AUTO) 0.8 10^3/uL (0.1-1.4); ABSOLUTE NEUT (AUTO) 8.9 10^3/uL (1.7-8.2); BASOPHILS % (AUTO) 0.5 % (0-2); EOSINOPHILS % (AUTO) 0.9 % (0-6); HEMATOCRIT 38.2 % (37.9-51.0); HEMOGLOBIN 12.9 g/dL (13.5-17.0); HGB HCT DIFFERENCE 0.5; LYMPHOCYTES % (AUTO) 6.5 % (13-45); MEAN CORPUSCULAR HEMOGLOBIN 31.6 pg (27.0-33.4); MEAN CORPUSCULAR HGB CONC 33.8 g/dL (32.0-36.0); MEAN CORPUSCULAR VOLUME 93 fl (80-97); MONOCYTES % (AUTO) 7.5 % (3-13); RED CELL DISTRIBUTION WIDTH 14.9 % (11.5-14.0); SEGMENTED NEUTROPHILS % (AUTO) 84.6 % (42-78); WHITE BLOOD COUNT 10.6 10^3/uL (4.0-10.5)
[2017-08-18] MEDS: VANCOMYCIN HCL 1,000 MG in DEXTROSE 5%-WATER 250 ML IV SCH ×2 (06:12→17:13)
[2017-08-18 06:17] LABS: ANION GAP 10 (5-19); BLOOD UREA NITROGEN 27 mg/dL (7-20); CALCIUM 8.6 mg/dL (8.4-10.2); CARBON DIOXIDE 26 mmol/L (22-30); CHLORIDE 100 mmol/L (98-107); CREATININE RESULT 1.19 mg/dL (0.52-1.25); GLUCOSE 201 mg/dL (75-110); POTASSIUM 4.1 mmol/L (3.6-5.0); SODIUM 135.6 mmol/L (137-145)
--- NOTE | 2017-08-18 09:58 | PDOC PROGRESS REPORT ---
Subjective Progress Note for:: 08/18/17 Subjective:: This is a follow-up visit for diabetic foot ulcer and possible osteomyelitis. The patient was moved to the ICU overnight for suspicion of suicidal ideation. There was also some concern that the patient was taking his own home medications in his room. The concern was whether or not the patient could unintentionally overdose. The overnight attending felt that it would be safer for him to come to the ICU and monitored with a sitter here. I spoke with the patient and the patient tells me that he usually takes Lyrica at home as well as another medication to control his nerve pain. He tells me that he had cancer with chemotherapy and that since then his nerves have been affected from the chemotherapeutic agents. He states that his toes currently throbbing. He denies any suicidal or homicidal ideations. He seems to simply not understand that he cannot take his own medications in the hospital unless they are distributed by pharmacy and the nursing staff. In my conversation with him he agrees to let us secure his medications and distribute medications from our hospital pharmacy. Physical Exam Vital Signs: Temp Pulse Resp BP Pulse Ox 98.6 F 73 21 H 136/65 H 96 08/18/17 06:00 08/18/17 06:00 08/18/17 06:00 08/18/17 06:00 08/18/17 06:00 Intake & Output 08/17/17 08/18/17 08/19/17 06:59 06:59 06:59 Intake Total 1215 2830 Output Total 2200 Balance 1215 630 Weight 133.6 kg GENERAL: This is a well-developed well-nourished appearing obese elderly white male resting in his recliner currently in no acute distress. He is quite pleasant. HEART: [Regular rate and rhythm. No murmurs, rubs or gallops.] LUNGS: [Clear to auscultation bilaterally with equal rise and fall of the chest. ] ABDOMEN: Soft, obese, colostomy bag is in place with brown stool. Nontender nondistended. EXTREMETIES: [No clubbing, cyanosis. Edema of the left toes is present. Patient's amputation is currently dressed. There is old blood present. 1+ peripheral pulses bilaterally.] NEURO: [Awake, alert and oriented 3. Cranial nerves II through XII are grossly intact With the exception of the auditory nerve. The patient seems to be hard of hearing.] Results Laboratory Results: 08/18/17 05:46 08/18/17 05:46 08/18/17 08/18/17 08/18/17 05:46 05:46 05:46 WBC 10.6 H RBC 4.10 L Hgb 12.9 L Hct 38.2 MCV 93 MCH 31.6 MCHC 33.8 RDW 14.9 H Plt Count 155 Seg Neutrophils % 84.6 H Lymphocytes % 6.5 L Monocytes % 7.5 Eosinophils % 0.9 Basophils % 0.5 Absolute Neutrophils 8.9 H Absolute Lymphocytes 0.7 Absolute Monocytes 0.8 Absolute Eosinophils 0.1 Absolute Basophils 0.1 Sodium 135.6 L Potassium 4.1 Chloride 100 Carbon Dioxide 26 Anion Gap 10 BUN 27 H Creatinine 1.19 Est GFR ( Amer) > 60 Est GFR (Non-Af Amer) 59 L Glucose 201 H Calcium 8.6 Magnesium 1.9 Impressions: Foot X-Ray 08/16/17 14:40 IMPRESSION: Soft tissue gas surrounding the right 5th metatarsophalangeal joint worrisome for infection. Decreased bony density of the 5th metatarsal head and base left 5th toe proximal phalanx worrisome for osteomyelitis. Chest X-Ray 08/16/17 18:12 IMPRESSION: NO ACUTE RADIOGRAPHIC FINDING IN THE CHEST. NO SIGNIFICANT CHANGE FROM PRIOR STUDY. Assessment & Plan - Diagnosis (1) Hyponatremia Plan: Hyponatremia is mild. It is likely related to his underlying infection. Continue to monitor. (2) Acute kidney injury Plan: Baseline renal function is between 0.8 and 1. His creatinine got up to 1.4. With fluids this is resolved. (3) Neuropathy Plan: Continue At Home Lyrica. (4) Diabetic infection of left foot Is this a current diagnosis for this admission?: Yes Plan: Patient remains on Zosyn and vancomycin. I will continue these. Any specimens obtained from surgery. Patient likely has osteomyelitis in which case he will need 4-6 weeks of IV antibiotic coverage based on susceptibilities and identification of microorganism. 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 Will also add on mealtime insulin once patient is eating again. He had been made n.p.o. upon transferral to the ICU. We will watch his sugars for today and make this final decision tomorrow. (6) HTN (hypertension) Qualifiers: Hypertension type: essential hypertension Qualified Code(s): I10 - Essential (primary) hypertension Is this a current diagnosis for this admission?: Yes Plan: The patient had an episode of hypotension overnight with blood pressure down to 89. Now back up to the 130s. Continue to monitor. (7) Morbid obesity with BMI of 40.0-44.9, adult Is this a current diagnosis for this admission?: Yes Plan: Weight loss through dietary changes and exercise as tolerated. - Time Time Spent with patient: 25-34 minutes - Inpatient Certification Based on my medical assessment, after consideration of the patient's comorbidities, presenting symptoms, or acuity I expect that the services needed warrant INPATIENT care.: Yes Medical Necessity: Need Close Monitoring Due to Risk of Patient Decompensation
[2017-08-18] MEDS: DOCUSATE SODIUM 100 MG CAPSULE PO SCH ×2 (09:59→17:13)
[2017-08-18] MEDS: INSULIN GLARGINE,HUM.REC.ANLOG 1,000 UNIT/10 ML UNIT SUBCUT SCH ×2 (10:00→22:16)
[2017-08-18] MEDS ORDERED: NALOXONE HCL PO SCH (10:00)
[2017-08-18] MEDS ORDERED: PENTAZOCINE HCL PO SCH (10:00)
[2017-08-18] MEDS: PREGABALIN 100 MG CAPSULE PO SCH ×2 (13:00→22:17)
[2017-08-18] MEDS: TALWIN NX PO SCH ×2 (13:01→22:16)
[2017-08-18] MEDS: INSULIN LISPRO 100 UNIT/ML 3 ML VIAL SUBCUT PRN ×3 (13:15→23:23)
[2017-08-18] MEDS: ATORVASTATIN CALCIUM 40 MG TABLET PO SCH (17:13)
[2017-08-18] MEDS: PIPERACILLIN SODIUM/TAZOBACTAM 3.375 GM in NORMAL SALINE 100 ML IV SCH ×2 (17:14→23:21)
--- NOTE | 2017-08-18 20:58 | PROGRESS NOTE E ---
Progress Note NAME: DARIUS BREWER : 1940 AGE: 76Y DATE: 08/18/2017 ROOM: 609 SUBJECTIVE: The patient was transferred to ICU yesterday because of the patient taking his own Lyrica, which he might have taken more than the usual dose. He was transferred there by the hospitalist. In the meantime, the dressing on the left foot had some blood *------* was reinforced with another *------* and miroslava bandage. This is his first postoperative day and there was a considerable amount of bleeding during surgery and probably best to change the dressing in 24 to 48 hours and consideration of possible placement of wound VAC. In the meantime, his white count came down to normal today and he remained afebrile. Plan is to continue on IV antibiotic therapy. DICTATING PHYSICIAN: JORDAN PAEZ M.D. [id number] PHY#: [id number] ID: [id number] JOB#: [id number] ACCT: [id number] cc: >
[2017-08-19 05:02] LABS: ABSOLUTE BASOPHILS # (AUTO) 0.1 10^3/uL (0.0-0.2); ABSOLUTE EOSINOPHILS # (AUTO) 0.2 10^3/uL (0.0-0.6); ABSOLUTE LYMPHOCYTES (AUTO) 0.9 10^3/uL (0.5-4.7); ABSOLUTE MONOCYTES (AUTO) 0.8 10^3/uL (0.1-1.4); ABSOLUTE NEUT (AUTO) 7.4 10^3/uL (1.7-8.2); BASOPHILS % (AUTO) 0.8 % (0-2); EOSINOPHILS % (AUTO) 2.2 % (0-6); HEMATOCRIT 37.7 % (37.9-51.0); HGB HCT DIFFERENCE 1.3; LYMPHOCYTES % (AUTO) 9.4 % (13-45); MEAN CORPUSCULAR HEMOGLOBIN 31.8 pg (27.0-33.4); MEAN CORPUSCULAR HGB CONC 34.5 g/dL (32.0-36.0); MEAN CORPUSCULAR VOLUME 92 fl (80-97); MONOCYTES % (AUTO) 8.8 % (3-13); RED BLOOD COUNT 4.09 10^6/uL (4.35-5.55); RED CELL DISTRIBUTION WIDTH 14.9 % (11.5-14.0); SEGMENTED NEUTROPHILS % (AUTO) 78.8 % (42-78); WHITE BLOOD COUNT 9.4 10^3/uL (4.0-10.5)
[2017-08-19 05:24] LABS: ANION GAP 9 (5-19); BLOOD UREA NITROGEN 21 mg/dL (7-20); CARBON DIOXIDE 25 mmol/L (22-30); CHLORIDE 102 mmol/L (98-107); CREATININE RESULT 1.07 mg/dL (0.52-1.25); GLUCOSE 147 mg/dL (75-110); POTASSIUM 3.9 mmol/L (3.6-5.0); SODIUM 135.6 mmol/L (137-145)
[2017-08-19] MEDS: PREGABALIN 100 MG CAPSULE PO SCH ×3 (05:54→21:38)
[2017-08-19] MEDS: TALWIN NX PO SCH ×3 (05:54→21:38)
[2017-08-19] MEDS: PIPERACILLIN SODIUM/TAZOBACTAM 3.375 GM in NORMAL SALINE 100 ML IV SCH ×4 (05:58→23:51)
[2017-08-19] MEDS: HEPARIN SOD (PORCINE) 5,000 UNIT/ML 1 ML SYRINGE SUBCUT SCH ×3 (05:58→21:39)
[2017-08-19] MEDS: VANCOMYCIN HCL 1,000 MG in DEXTROSE 5%-WATER 250 ML IV SCH (06:45)
[2017-08-19] MEDS: ACETAMINOPHEN 325 MG TABLET PO PRN ×2 (06:52→21:39)
[2017-08-19] MEDS: INSULIN GLARGINE,HUM.REC.ANLOG 1,000 UNIT/10 ML UNIT SUBCUT SCH ×2 (11:21→21:39)
[2017-08-19] MEDS: DOCUSATE SODIUM 100 MG CAPSULE PO SCH ×2 (11:21→18:32)
--- NOTE | 2017-08-19 15:50 | PDOC PROGRESS REPORT ---
Subjective Progress Note for:: 08/19/17 Subjective:: Patient has no complaints; has chronic leg swelling. Physical Exam Vital Signs: Temp Pulse Resp BP Pulse Ox 97.4 F 73 18 105/57 L 94 08/19/17 12:00 08/19/17 14:00 08/19/17 12:00 08/19/17 12:00 08/19/17 12:00 Intake & Output 08/18/17 08/19/17 08/20/17 06:59 06:59 06:59 Intake Total 2830 2044 Output Total 2200 3600 Balance 630 -1556 Weight 133.6 kg Extremities exam: PRESENT: other - Massive leg swelling; wound packing removed from lateral aspect of left foot. Cavity clean no foul smell or drainage. Irrigated several times by Dr. shook and repacked with saline gauze Results Laboratory Results: 08/19/17 04:09 08/19/17 04:04 08/19/17 08/19/17 04:04 04:09 WBC 9.4 RBC 4.09 L Hgb 13.0 L Hct 37.7 L MCV 92 MCH 31.8 MCHC 34.5 RDW 14.9 H Plt Count 173 Seg Neutrophils % 78.8 H Lymphocytes % 9.4 L Monocytes % 8.8 Eosinophils % 2.2 Basophils % 0.8 Absolute Neutrophils 7.4 Absolute Lymphocytes 0.9 Absolute Monocytes 0.8 Absolute Eosinophils 0.2 Absolute Basophils 0.1 Sodium 135.6 L Potassium 3.9 Chloride 102 Carbon Dioxide 25 Anion Gap 9 BUN 21 H Creatinine 1.07 Est GFR ( Amer) > 60 Est GFR (Non-Af Amer) > 60 Glucose 147 H Calcium 9.0 Magnesium 2.0 08/17/17 11:46 Foot - Left Gram Stain - Final 08/17/17 11:46 Foot - Left Wound Culture - Final Enterococcus Faecalis(Group D) Propionibacterium Species Prevotella Species Impressions: Foot X-Ray 08/16/17 14:40 IMPRESSION: Soft tissue gas surrounding the right 5th metatarsophalangeal joint worrisome for infection. Decreased bony density of the 5th metatarsal head and base left 5th toe proximal phalanx worrisome for osteomyelitis. Chest X-Ray 08/16/17 18:12 IMPRESSION: NO ACUTE RADIOGRAPHIC FINDING IN THE CHEST. NO SIGNIFICANT CHANGE FROM PRIOR STUDY. Assessment & Plan - Diagnosis (1) Diabetic infection of left foot Is this a current diagnosis for this admission?: Yes Plan: Now postoperative day 2 following operative debridement amputation of the left fifth toe and metatarsal head open, without evidence of infection progression Plan: 1. Explained rationale for packing wound today 2. Continue intravenous antibiotics 3. Will institute Jerry wraps to the lower extremities bilaterally. 4. Likely place the VAC drain tomorrow
--- NOTE | 2017-08-19 17:32 | PDOC PROGRESS REPORT ---
Subjective Progress Note for:: 08/19/17 Subjective:: This is a follow-up visit for diabetic foot ulcer and possible osteomyelitis. The patient is doing well this morning. He tells me that the surgeon is already been by and that it hurt when he got his dressings changed. He is satisfied with the management of his pain medications. Physical Exam Vital Signs: Temp Pulse Resp BP Pulse Ox 98.3 F 70 20 133/49 H 94 08/19/17 15:34 08/19/17 15:34 08/19/17 15:34 08/19/17 15:34 08/19/17 15:34 Intake & Output 08/18/17 08/19/17 08/20/17 06:59 06:59 06:59 Intake Total 2830 2044 Output Total 2200 3600 Balance 630 -1556 Weight 133.6 kg GENERAL: This is a well-developed well-nourished appearing obese elderly white male resting in his recliner currently in no acute distress. HEART: Regular rate and rhythm. No murmurs, rubs or gallops. LUNGS: Clear to auscultation bilaterally with equal rise and fall of the chest. ABDOMEN: Soft, obese, colostomy bag is in place with brown stool. Nontender nondistended. EXTREMETIES: No clubbing, cyanosis. Edema of the left toes is present. Patient 's amputation is currently dressed. Dressings are clean dry and intact.. 1+ peripheral pulses bilaterally. NEURO: Awake, alert and oriented 3. Cranial nerves II through XII are grossly intact With the exception of the auditory nerve. The patient seems to be hard of hearing. Results Laboratory Results: 08/19/17 04:09 08/19/17 04:04 08/19/17 08/19/17 04:04 04:09 WBC 9.4 RBC 4.09 L Hgb 13.0 L Hct 37.7 L MCV 92 MCH 31.8 MCHC 34.5 RDW 14.9 H Plt Count 173 Seg Neutrophils % 78.8 H Lymphocytes % 9.4 L Monocytes % 8.8 Eosinophils % 2.2 Basophils % 0.8 Absolute Neutrophils 7.4 Absolute Lymphocytes 0.9 Absolute Monocytes 0.8 Absolute Eosinophils 0.2 Absolute Basophils 0.1 Sodium 135.6 L Potassium 3.9 Chloride 102 Carbon Dioxide 25 Anion Gap 9 BUN 21 H Creatinine 1.07 Est GFR ( Amer) > 60 Est GFR (Non-Af Amer) > 60 Glucose 147 H Calcium 9.0 Magnesium 2.0 08/17/17 11:46 Foot - Left Gram Stain - Final 08/17/17 11:46 Foot - Left Wound Culture - Final Enterococcus Faecalis(Group D) Propionibacterium Species Prevotella Species Impressions: Foot X-Ray 08/16/17 14:40 IMPRESSION: Soft tissue gas surrounding the right 5th metatarsophalangeal joint worrisome for infection. Decreased bony density of the 5th metatarsal head and base left 5th toe proximal phalanx worrisome for osteomyelitis. Chest X-Ray 08/16/17 18:12 IMPRESSION: NO ACUTE RADIOGRAPHIC FINDING IN THE CHEST. NO SIGNIFICANT CHANGE FROM PRIOR STUDY. Assessment & Plan - Diagnosis (1) Hyponatremia Plan: Hyponatremia is mild. It is likely related to his underlying infection. Continue to monitor. (2) Acute kidney injury Plan: Baseline renal function is between 0.8 and 1. His creatinine got up to 1.4. With fluids this is resolved. (3) Neuropathy Plan: Continue At Home Lyrica. (4) Diabetic infection of left foot Is this a current diagnosis for this admission?: Yes Plan: Patient remains on Zosyn and vancomycin. Await final cultures. Once they are back we can likely discontinue vancomycin. So far there is no evidence of MRSA present. 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 Add mealtime insulin for better control. Continue to monitor. Continue ADA diet. (6) HTN (hypertension) Qualifiers: Hypertension type: essential hypertension Qualified Code(s): I10 - Essential (primary) hypertension Is this a current diagnosis for this admission?: Yes Plan: Continue current therapy. Stable. (7) Morbid obesity with BMI of 40.0-44.9, adult Is this a current diagnosis for this admission?: Yes Plan: Weight loss through dietary changes and exercise as tolerated. - Time Time Spent with patient: 15-24 minutes Anticipated discharge: SNF - Inpatient Certification Medical Necessity: Need Close Monitoring Due to Risk of Patient Decompensation
[2017-08-19] MEDS: ATORVASTATIN CALCIUM 40 MG TABLET PO SCH (18:31)
[2017-08-19] MEDS: INSULIN REG, HUMAN 100 UNIT/ML 3 ML VIAL (PYX) SUBCUT SCH (18:31)
[2017-08-20] MEDS: ACETAMINOPHEN 325 MG TABLET PO PRN ×2 (05:51→17:58)
[2017-08-20] MEDS: PREGABALIN 100 MG CAPSULE PO SCH ×3 (05:51→22:03)
[2017-08-20] MEDS: TALWIN NX PO SCH ×3 (05:51→22:03)
[2017-08-20] MEDS: PIPERACILLIN SODIUM/TAZOBACTAM 3.375 GM in NORMAL SALINE 100 ML IV SCH ×2 (05:52→11:57)
[2017-08-20] MEDS: HEPARIN SOD (PORCINE) 5,000 UNIT/ML 1 ML SYRINGE SUBCUT SCH ×3 (05:52→22:03)
[2017-08-20] MEDS: INSULIN REG, HUMAN 100 UNIT/ML 3 ML VIAL (PYX) SUBCUT SCH ×3 (07:56→18:08)
[2017-08-20] MEDS: IPRATROPIUM/ALBUTEROL 0.5-2.5 MG/3 ML AMPUL NEB PRN (09:24)
--- NOTE | 2017-08-20 09:52 | OPERATIVE REPORT E ---
Operative Report NAME: DARIUS BREWER : 1940 AGE: 76Y DATE OF SURGERY: 08/20/2017 ROOM: 534 PREOPERATIVE DIAGNOSIS: Post amputation of the left fifth toe and the left metatarsal bone. POSTOPERATIVE DIAGNOSIS: Post amputation of the left fifth toe and the left metatarsal bone. PROCEDURE: Placement of a wound VAC. SURGEON: JORDAN PAEZ M.D. INDICATION: This is a 76-year-old male who had amputation of the left fifth toe and fifth metatarsal head area 3 days ago. The wound site appears ready for a wound VAC. DESCRIPTION OF PROCEDURE: The dressing was removed and wet-to-dry dressing pulled out and the wound looks clean and dry. The area was irrigated with saline solution. Next, a foam for the wound VAC was placed on the wound and subsequently placed over the wound with an elastic transparent dressing. An area on the wound was removed about 5 to 6 mm in diameter and a wound VAC suction was then placed over the dressing. The wound VAC suction then connected to the suction machine and noted to be suctioning well to a pressure of -125 mmHg. No leak noted on the wound VAC. Patient tolerated the procedure well. DICTATING PHYSICIAN: JORDAN PAEZ M.D. [id number] PHY#: [id number] ID: [id number] JOB#: [id number] ACCT: [id number] cc:JORDAN PAEZ M.D. >
[2017-08-20] MEDS: INSULIN GLARGINE,HUM.REC.ANLOG 1,000 UNIT/10 ML UNIT SUBCUT SCH ×2 (10:06→22:03)
[2017-08-20] MEDS: DOCUSATE SODIUM 100 MG CAPSULE PO SCH ×2 (10:07→17:59)
[2017-08-20] MEDS: INSULIN LISPRO 100 UNIT/ML 3 ML VIAL SUBCUT PRN ×2 (13:56→18:10)
[2017-08-20] MEDS: ATORVASTATIN CALCIUM 40 MG TABLET PO SCH (17:54)
[2017-08-20] MEDS: POTASSIUM CHLORIDE 10 MEQ TABLET.SA PO SCH (17:54)
[2017-08-20] MEDS: FUROSEMIDE 40 MG TABLET PO SCH (17:55)
[2017-08-20] MEDS: AMPICILLIN SODIUM 2 GM in NORMAL SALINE 100 ML IV SCH (17:56)
[2017-08-20] MEDS: METOPROLOL TARTRATE 50 MG TABLET PO SCH (22:03)
[2017-08-21] MEDS: AMPICILLIN SODIUM 2 GM in NORMAL SALINE 100 ML IV SCH ×5 (00:50→23:37)
[2017-08-21] MEDS: TALWIN NX PO SCH ×3 (06:01→21:38)
[2017-08-21] MEDS: PREGABALIN 100 MG CAPSULE PO SCH ×3 (06:01→21:38)
[2017-08-21] MEDS: HEPARIN SOD (PORCINE) 5,000 UNIT/ML 1 ML SYRINGE SUBCUT SCH ×3 (06:02→21:43)
[2017-08-21] MEDS: INSULIN REG, HUMAN 100 UNIT/ML 3 ML VIAL (PYX) SUBCUT SCH ×3 (08:34→17:18)
[2017-08-21] MEDS: FUROSEMIDE 40 MG TABLET PO SCH ×2 (11:10→17:19)
[2017-08-21] MEDS: POTASSIUM CHLORIDE 10 MEQ TABLET.SA PO SCH ×2 (11:12→17:21)
[2017-08-21] MEDS: METOPROLOL TARTRATE 50 MG TABLET PO SCH ×2 (11:12→21:38)
[2017-08-21] MEDS: DOCUSATE SODIUM 100 MG CAPSULE PO SCH ×2 (11:12→17:23)
[2017-08-21] MEDS: INSULIN GLARGINE,HUM.REC.ANLOG 1,000 UNIT/10 ML UNIT SUBCUT SCH ×2 (11:14→21:43)
[2017-08-21] MEDS: INSULIN LISPRO 100 UNIT/ML 3 ML VIAL SUBCUT PRN (12:25)
--- NOTE | 2017-08-21 16:17 | PROGRESS NOTE E ---
Progress Note NAME: DARIUS BREWER : 1940 AGE: 76Y DATE: 08/21/2017 ROOM: 534 SUBJECTIVE: The patient does complain of some tolerable pains in both legs, worse in the left foot area. OBJECTIVE: The wound VAC is in place. Still got some swelling of both lower legs and unfortunately, the patient still sleeps in the recliner, despite telling him that it is important for him to sleep in the bed. DIAGNOSTIC DATA: His cultures came back at Enterococcus faecalis (group D), sensitive to ampicillin. PLAN: The patient is on ampicillin right now and will most likely need at least a 7- to 10-day course since the osteomyelitis has been removed. Continue the wound VAC and for it also to be continued at home until the wound is almost healed or most likely will need a possible skin graft to hasten the healing in the near future. DICTATING PHYSICIAN: JORDAN PAEZ M.D. [id number] PHY#: [id number] ID: [id number] JOB#: [id number] ACCT: [id number] cc: >
[2017-08-21] MEDS: ATORVASTATIN CALCIUM 40 MG TABLET PO SCH (17:19)
--- NOTE | 2017-08-21 19:22 | PDOC PROGRESS REPORT ---
Subjective Progress Note for:: 08/20/17 Subjective:: This a a following for diabetic foot ulcer with osteo of the left foot. Patient is status post amputation. Patient was already seen by surgery this morning. Patient does not have any pain unless the foot is touched. Patient is having some swelling in his left leg but patient has chronic swelling in his left leg. Physical Exam Vital Signs: Temp Pulse Resp BP Pulse Ox 97.4 F 69 20 149/60 H 97 08/20/17 16:02 08/20/17 16:02 08/20/17 16:02 08/20/17 16:02 08/20/17 16:02 Intake & Output 08/19/17 08/20/17 08/21/17 06:59 06:59 06:59 Intake Total 2044 2110 1460 Output Total 3600 Balance -1556 2110 1460 General appearance: PRESENT: no acute distress, morbidly obese Eye exam: PRESENT: EOMI. ABSENT: scleral icterus Teeth exam: PRESENT: poor dentation Respiratory exam: PRESENT: clear to auscultation jose Cardiovascular exam: PRESENT: RRR, +S1, +S2 GI/Abdominal exam: PRESENT: normal bowel sounds, soft, tenderness Rectal exam: PRESENT: deferred Gentrourinary exam: ABSENT: indwelling catheter Extremities exam: PRESENT: pedal edema, +2 edema Musculoskeletal exam: PRESENT: full ROM, other - left toe ambutation boot and dressing in place with wound vac. Erythema and crusting of the skin Neurological exam: PRESENT: alert, altered, oriented to person, oriented to place, oriented to time, oriented to situation Psychiatric exam: PRESENT: flat affect Results Laboratory Results: 08/19/17 04:09 08/19/17 04:04 08/17/17 11:46 Foot - Left Gram Stain - Final 08/17/17 11:46 Foot - Left Wound Culture - Final Enterococcus Faecalis(Group D) Propionibacterium Species Prevotella Species Impressions: Foot X-Ray 08/16/17 14:40 IMPRESSION: Soft tissue gas surrounding the right 5th metatarsophalangeal joint worrisome for infection. Decreased bony density of the 5th metatarsal head and base left 5th toe proximal phalanx worrisome for osteomyelitis. Chest X-Ray 08/16/17 18:12 IMPRESSION: NO ACUTE RADIOGRAPHIC FINDING IN THE CHEST. NO SIGNIFICANT CHANGE FROM PRIOR STUDY. Assessment & Plan - Diagnosis (1) Acute kidney injury Is this a current diagnosis for this admission?: Yes Plan: Resolved with IV hydration continue to monitor. (2) Diabetic infection of left foot Is this a current diagnosis for this admission?: Yes Plan: She is status post amputation of the left toe. Patient was on vancomycin and Zosyn. Patient was growing enterococcus in the wound therefore his antibiotics were de-escalated to ampicillin. Patient leukocytosis have resolved. Surgery continues to follow. Dressing changes and wound care per surgery. (3) Hyponatremia Plan: Hyponatremia is mild possibly due to the edema as patient now has swelling in both lower extremities. Patient is always sitting with his legs hanging. Patient restarted on his diuretics. Will monitor sodium level. (4) Neuropathy Is this a current diagnosis for this admission?: Yes Plan: Secondary to his diabetes. Patient is currently on Lyrica (5) HTN (hypertension) Qualifiers: Hypertension type: essential hypertension Qualified Code(s): I10 - Essential (primary) hypertension Is this a current diagnosis for this admission?: Yes Plan: Patient blood pressures are stable on metoprolol. (6) Morbid obesity with BMI of 40.0-44.9, adult Is this a current diagnosis for this admission?: Yes Plan: Patient counseled on appropriate diet and the need for weight loss. (7) Tobacco dependency Is this a current diagnosis for this admission?: Yes Plan: Smoke patient counseled on tobacco cessation this may complicate his current medical situation. - Time Time Spent with patient: 15-24 minutes Anticipated discharge: Home with Homehealth Within: Other - Final recommendations from surgery to discharge.
--- NOTE | 2017-08-21 19:32 | PDOC PROGRESS REPORT ---
Subjective Progress Note for:: 08/21/17 Subjective:: This a a following for diabetic foot ulcer with osteo of the left foot. Patient is status post amputation. Patient was already seen by surgery this morning. He states that he was hoping to go home sooner than later. Patient is also irritated that his wound VAC is not working. Physical Exam Vital Signs: Temp Pulse Resp BP Pulse Ox 98.8 F 61 18 145/62 H 94 08/21/17 15:43 08/21/17 15:43 08/21/17 15:43 08/21/17 15:43 08/21/17 15:43 Intake & Output 08/20/17 08/21/17 08/22/17 06:59 06:59 06:59 Intake Total 2110 2200 Output Total 620 Balance 2110 1580 Weight 133.6 kg General appearance: PRESENT: disheveled, morbidly obese Head exam: PRESENT: atraumatic, normocephalic Eye exam: PRESENT: EOMI, other - Glasses Neck exam: PRESENT: full ROM. ABSENT: JVD Respiratory exam: PRESENT: clear to auscultation jose. ABSENT: unlabored Cardiovascular exam: PRESENT: RRR, +S1, +S2 GI/Abdominal exam: PRESENT: normal bowel sounds, soft. ABSENT: tenderness Rectal exam: PRESENT: deferred Extremities exam: PRESENT: full ROM - Irritation of left toe boot on place wound VAC not working erythema and dry skin of the toes., +2 edema Neurological exam: PRESENT: alert, awake, oriented to person, oriented to place , oriented to time, oriented to situation Psychiatric exam: PRESENT: flat affect Results Laboratory Results: 08/19/17 04:09 08/19/17 04:04 Impressions: Foot X-Ray 08/16/17 14:40 IMPRESSION: Soft tissue gas surrounding the right 5th metatarsophalangeal joint worrisome for infection. Decreased bony density of the 5th metatarsal head and base left 5th toe proximal phalanx worrisome for osteomyelitis. Chest X-Ray 08/16/17 18:12 IMPRESSION: NO ACUTE RADIOGRAPHIC FINDING IN THE CHEST. NO SIGNIFICANT CHANGE FROM PRIOR STUDY. Assessment & Plan - Diagnosis (1) Acute kidney injury Is this a current diagnosis for this admission?: Yes Plan: Improved with IV hydration and remains stable. Continue to monitor. (2) Diabetic infection of left foot Is this a current diagnosis for this admission?: Yes Plan: She is status post amputation of the left toe. Patient was on vancomycin and Zosyn. Patient was growing enterococcus in the wound therefore his antibiotics were de-escalated to ampicillin as of 08/20/2017. Patient leukocytosis have resolved. Surgery continues to follow. Dressing changes and wound care per surgery. Nursing staff has called for new wound VAC the current one is not working. (3) Hyponatremia Plan: Mild will continue to monitor especially the patient was restarted on diuretics for the worsening bilateral pedal edema. (4) Neuropathy Is this a current diagnosis for this admission?: Yes Plan: Secondary to his diabetes. Patient is currently on Lyrica (5) HTN (hypertension) Qualifiers: Hypertension type: essential hypertension Qualified Code(s): I10 - Essential (primary) hypertension Is this a current diagnosis for this admission?: Yes Plan: 2 units metoprolol and diuretics. (6) Morbid obesity with BMI of 40.0-44.9, adult Is this a current diagnosis for this admission?: Yes Plan: Patient counseled on appropriate diet and the need for weight loss. (7) Tobacco dependency Is this a current diagnosis for this admission?: Yes Plan: Smoke patient counseled on tobacco cessation this may complicate his current medical situation. Nicotine patch in place (8) Type 1 diabetes Qualifiers: Diabetes mellitus complication status: with circulatory complication Diabetes mellitus complication detail: with peripheral angiopathy without gangrene Qualified Code(s): E10.51 - Type 1 diabetes mellitus with diabetic peripheral angiopathy without gangrene Is this a current diagnosis for this admission?: Yes Plan: Continue current insulin dosages. Continue monitoring blood glucose. - Time Time Spent with patient: Less than 15 minutes Anticipated discharge: Home with Homehealth - Awating final recommendations from surgery.
[2017-08-22 05:17] LABS: ANION GAP 11 (5-19); BLOOD UREA NITROGEN 21 mg/dL (7-20); CALCIUM 8.8 mg/dL (8.4-10.2); CARBON DIOXIDE 26 mmol/L (22-30); CHLORIDE 102 mmol/L (98-107); CREATININE RESULT 1.22 mg/dL (0.52-1.25); GLUCOSE 114 mg/dL (75-110); POTASSIUM 4.1 mmol/L (3.6-5.0); SODIUM 138.9 mmol/L (137-145)
[2017-08-22] MEDS: PREGABALIN 100 MG CAPSULE PO SCH ×3 (06:21→21:40)
[2017-08-22] MEDS: TALWIN NX PO SCH ×3 (06:21→21:39)
[2017-08-22] MEDS: AMPICILLIN SODIUM 2 GM in NORMAL SALINE 100 ML IV SCH ×4 (06:22→23:19)
[2017-08-22] MEDS: HEPARIN SOD (PORCINE) 5,000 UNIT/ML 1 ML SYRINGE SUBCUT SCH ×3 (06:24→21:39)
[2017-08-22] MEDS: INSULIN GLARGINE,HUM.REC.ANLOG 1,000 UNIT/10 ML UNIT SUBCUT SCH ×2 (09:01→21:39)
[2017-08-22] MEDS: INSULIN REG, HUMAN 100 UNIT/ML 3 ML VIAL (PYX) SUBCUT SCH ×3 (09:01→18:42)
[2017-08-22] MEDS: METOPROLOL TARTRATE 50 MG TABLET PO SCH ×2 (09:03→21:40)
[2017-08-22] MEDS: POTASSIUM CHLORIDE 10 MEQ TABLET.SA PO SCH ×2 (09:03→18:47)
[2017-08-22] MEDS: FUROSEMIDE 40 MG TABLET PO SCH ×2 (09:04→18:44)
[2017-08-22] MEDS: DOCUSATE SODIUM 100 MG CAPSULE PO SCH ×2 (09:05→18:54)
[2017-08-22] MEDS ORDERED: NICOTINE 21 MG/24 HR PATCH.TD24 TD PRN (09:30)
--- NOTE | 2017-08-22 14:03 | XCELERA REPORT ---
[address] [address] Lower Extremity Venous Evaluation Name: DARIUS BREWER Age: 76 yrs Gender: Male : 1940 Patient Status: Inpatient [facility] Study Date: 08/22/2017 09:16 AM Procedure: Color flow and duplex imaging bilaterally of the veins of the lower extremities as well as the Common Femoral veins. Reason For Study: pedel edema and history of DVT Ordering Physician: MASHA GARCAI Performed By: Montrell Cervantes Right Sided Venous Evaluation Unable to image Femoral vein, and Saphenofemoral junction, due to body habitus. Otherwise normal vessel filling wall to wall, compression and augmentation as well as Colour flow down to the infrageniculate veins. Left Sided Venous Evaluation Unable to image Femoral vein, and Saphenofemoral junction, due to body habitus. Otherwise normal vessel filling wall to wall, compression and augmentation as well as Colour flow down to the infrageniculate veins. Interpretation Summary No duplex evidence of DVT or obstruction in the bilateral lower extremities. Some limitations as some areas were not able to be visualised. : MASHA GARCIA > Serg Carrillo
[2017-08-22] MEDS: ATORVASTATIN CALCIUM 40 MG TABLET PO SCH (18:43)
[2017-08-23] MEDS: PREGABALIN 100 MG CAPSULE PO SCH ×3 (06:39→21:21)
[2017-08-23] MEDS: HEPARIN SOD (PORCINE) 5,000 UNIT/ML 1 ML SYRINGE SUBCUT SCH ×3 (06:39→21:20)
[2017-08-23] MEDS: TALWIN NX PO SCH ×3 (06:39→21:20)
[2017-08-23] MEDS: AMPICILLIN SODIUM 2 GM in NORMAL SALINE 100 ML IV SCH ×4 (06:40→23:12)
[2017-08-23] MEDS: INSULIN REG, HUMAN 100 UNIT/ML 3 ML VIAL (PYX) SUBCUT SCH ×2 (08:12→16:35)
[2017-08-23] MEDS: INSULIN GLARGINE,HUM.REC.ANLOG 1,000 UNIT/10 ML UNIT SUBCUT SCH ×2 (08:12→21:20)
[2017-08-23] MEDS: FUROSEMIDE 40 MG TABLET PO SCH ×2 (10:12→18:37)
[2017-08-23] MEDS: POTASSIUM CHLORIDE 10 MEQ TABLET.SA PO SCH ×2 (10:12→18:38)
[2017-08-23] MEDS: METOPROLOL TARTRATE 50 MG TABLET PO SCH ×2 (10:13→21:20)
[2017-08-23] MEDS: DOCUSATE SODIUM 100 MG CAPSULE PO SCH ×2 (10:13→18:44)
[2017-08-23] MEDS: INSULIN LISPRO 100 UNIT/ML 3 ML VIAL SUBCUT PRN (11:49)
--- NOTE | 2017-08-23 12:17 | PROGRESS NOTE E ---
Progress Note NAME: DARIUS BREWER : 1940 AGE: 76Y DATE: 08/23/2017 ROOM: 534 SUBJECTIVE: This is the 6th postop day for the patient and about the 3rd day of VAC placement. The culture showed Enterococcus faecalis, beta-lactamase positive, sensitive to ampicillin and sulbactam. PLAN: The VAC is working right now. I think arrangements can be made for him to have a wound VAC at home and continue the p.o. ampicillin, at least for the next week. He can be discharged today if arrangements with a wound VAC can be made. Patient is anxious to go home. DICTATING PHYSICIAN: JORDAN PAEZ M.D. [id number] PHY#: [id number] ID: [id number] JOB#: [id number] ACCT: [id number] cc: >
--- NOTE | 2017-08-23 13:20 | PDOC PROGRESS REPORT ---
Subjective Progress Note for:: 08/23/17 Subjective:: The patient is a 76 yom admitted with a diabetic foot infection. He now has a wound vac in place. The patient will need a [facility]. Once everything is in place discharge home can be arranged. The patient was taken to the operating room on 08/20/2017 and underwent amputation of the left fifth toe with left metatarsal bone resection. 923 wound culture has grown Enterococcus faecalis group D, Propionibacterium and Prevotella. Physical Exam Vital Signs: Temp Pulse Resp BP Pulse Ox 97.7 F 63 20 137/53 H 89 L 08/23/17 07:42 08/23/17 07:42 08/23/17 07:42 08/23/17 07:42 08/23/17 07:42 Intake & Output 08/22/17 08/23/17 08/24/17 06:59 06:59 06:59 Intake Total 1090 536 330 Balance 1090 536 330 Weight 133.5 kg Additional comments: When I entered the room the patient was sitting up to a chair eating his lunch. He appears to be his stated age. His cognition is normal. He answers questions appropriately. He is able to use all 4 extremities. His facial appearance is normal. Cranial nerves II through XII are intact. Patient's lung exam demonstrates clear lung sounds bilaterally and both anteriorly and posteriorly. The patient informed me that he has a heart murmur. Heart sounds were very distant but I did not appreciate a murmur today. Did not hear any gallops or rubs. The abdomen is obese but soft. Bowel sounds are noted. Patient has chronic venous stasis of the lower extremities. The surgical incision is covered on the left foot. A wound VAC is covering the incision. Results Laboratory Results: 08/19/17 04:09 08/22/17 04:40 Impressions: Foot X-Ray 08/16/17 14:40 IMPRESSION: Soft tissue gas surrounding the right 5th metatarsophalangeal joint worrisome for infection. Decreased bony density of the 5th metatarsal head and base left 5th toe proximal phalanx worrisome for osteomyelitis. Chest X-Ray 08/16/17 18:12 IMPRESSION: NO ACUTE RADIOGRAPHIC FINDING IN THE CHEST. NO SIGNIFICANT CHANGE FROM PRIOR STUDY. Assessment & Plan - Diagnosis (1) Type 2 diabetes mellitus Is this a current diagnosis for this admission?: Yes Plan: The patient is receiving long-acting insulin, mealtime coverage and sliding scale with good control of blood sugars. (2) Acute kidney injury Is this a current diagnosis for this admission?: Yes Plan: Looking through this hospitalization creatinine is fairly stable today at 1.22. (3) Diabetic infection of left foot Is this a current diagnosis for this admission?: Yes Plan: Patient is status post amputation of the left fifth toe with left metatarsal bone resection. He is currently receiving ampicillin. A wound VAC has been placed. (4) Hyponatremia Is this a current diagnosis for this admission?: Yes Plan: Resolved. (5) Neuropathy Is this a current diagnosis for this admission?: Yes Plan: Continue Lyrica. (6) HTN (hypertension) Qualifiers: Hypertension type: essential hypertension Qualified Code(s): I10 - Essential (primary) hypertension Is this a current diagnosis for this admission?: Yes Plan: Continue metoprolol and Lasix. Currently, blood pressure is under good control. (7) Morbid obesity with BMI of 40.0-44.9, adult Is this a current diagnosis for this admission?: Yes (8) Tobacco dependency Is this a current diagnosis for this admission?: Yes - Time Time Spent with patient: 15-24 minutes - Inpatient Certification Medical Necessity: Need for IV Antibiotics, Risk of Complication if Not Cared For in Hospital
[2017-08-23] MEDS: ATORVASTATIN CALCIUM 40 MG TABLET PO SCH (18:39)
[2017-08-24 06:25] LABS: ABSOLUTE BASOPHILS # (AUTO) 0.1 10^3/uL (0.0-0.2); ABSOLUTE EOSINOPHILS # (AUTO) 0.2 10^3/uL (0.0-0.6); ABSOLUTE LYMPHOCYTES (AUTO) 1.4 10^3/uL (0.5-4.7); ABSOLUTE MONOCYTES (AUTO) 0.8 10^3/uL (0.1-1.4); ABSOLUTE NEUT (AUTO) 7.8 10^3/uL (1.7-8.2); BASOPHILS % (AUTO) 0.8 % (0-2); EOSINOPHILS % (AUTO) 1.6 % (0-6); HEMATOCRIT 40.3 % (37.9-51.0); HEMOGLOBIN 13.7 g/dL (13.5-17.0); HGB HCT DIFFERENCE 0.8; LYMPHOCYTES % (AUTO) 13.3 % (13-45); MEAN CORPUSCULAR HEMOGLOBIN 31.6 pg (27.0-33.4); MEAN CORPUSCULAR HGB CONC 34.1 g/dL (32.0-36.0); MEAN CORPUSCULAR VOLUME 93 fl (80-97); MONOCYTES % (AUTO) 8.1 % (3-13); RED BLOOD COUNT 4.34 10^6/uL (4.35-5.55); RED CELL DISTRIBUTION WIDTH 14.9 % (11.5-14.0); SEGMENTED NEUTROPHILS % (AUTO) 76.2 % (42-78); WHITE BLOOD COUNT 10.2 10^3/uL (4.0-10.5)
[2017-08-24] MEDS: PREGABALIN 100 MG CAPSULE PO SCH ×3 (06:31→22:29)
[2017-08-24] MEDS: TALWIN NX PO SCH ×3 (06:31→22:29)
[2017-08-24] MEDS: HEPARIN SOD (PORCINE) 5,000 UNIT/ML 1 ML SYRINGE SUBCUT SCH ×3 (06:31→22:29)
[2017-08-24] MEDS: AMPICILLIN SODIUM 2 GM in NORMAL SALINE 100 ML IV SCH ×4 (06:31→23:57)
[2017-08-24 06:42] LABS: ANION GAP 12 (5-19); BLOOD UREA NITROGEN 27 mg/dL (7-20); CALCIUM 9.1 mg/dL (8.4-10.2); CARBON DIOXIDE 27 mmol/L (22-30); CHLORIDE 100 mmol/L (98-107); CREATININE RESULT 1.41 mg/dL (0.52-1.25); GLUCOSE 84 mg/dL (75-110); POTASSIUM 4.6 mmol/L (3.6-5.0); SODIUM 139.4 mmol/L (137-145)
[2017-08-24] MEDS: POTASSIUM CHLORIDE 10 MEQ TABLET.SA PO SCH ×2 (08:57→16:43)
[2017-08-24] MEDS: FUROSEMIDE 40 MG TABLET PO SCH ×2 (08:57→16:38)
[2017-08-24] MEDS: INSULIN REG, HUMAN 100 UNIT/ML 3 ML VIAL (PYX) SUBCUT SCH ×3 (08:59→16:44)
[2017-08-24] MEDS: INSULIN GLARGINE,HUM.REC.ANLOG 1,000 UNIT/10 ML UNIT SUBCUT SCH ×2 (08:59→22:29)
[2017-08-24] MEDS: METOPROLOL TARTRATE 50 MG TABLET PO SCH ×2 (08:59→22:28)
[2017-08-24] MEDS: DOCUSATE SODIUM 100 MG CAPSULE PO SCH ×2 (09:00→16:30)
--- NOTE | 2017-08-24 09:08 | PDOC PROGRESS REPORT ---
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 Patient is status post amputation. Patient is ready to go home. Patient needs equiptment however [facility]. Explained to patient that this will take time. Physical Exam Vital Signs: Temp Pulse Resp BP Pulse Ox 98.1 F 62 18 151/49 H 94 08/22/17 19:39 08/22/17 19:39 08/22/17 19:39 08/22/17 19:39 08/22/17 19:39 Intake & Output 08/21/17 08/22/17 08/23/17 06:59 06:59 06:59 Intake Total 2200 1090 200 Output Total 620 Balance 1580 1090 200 Weight 133.6 kg General appearance: PRESENT: no acute distress, disheveled, obese Head exam: PRESENT: atraumatic, normocephalic Eye exam: PRESENT: EOMI, other - glasses Teeth exam: PRESENT: poor dentation Neck exam: PRESENT: full ROM. ABSENT: JVD Respiratory exam: PRESENT: decreased breath sounds, wheezes. ABSENT: tachypnea , unlabored Cardiovascular exam: PRESENT: RRR, +S1, +S2 GI/Abdominal exam: PRESENT: soft. ABSENT: tenderness - protuberant Rectal exam: PRESENT: deferred Extremities exam: PRESENT: pedal edema Musculoskeletal exam: PRESENT: full ROM - left foot with hard shoe and wound vac dressing in place Neurological exam: PRESENT: CN II-XII grossly intact Psychiatric exam: PRESENT: flat affect - erythema and swelling of the legs and feet. Compression dressing on right lower extremity hard bottom shoes on left with wound vac in place patient won't allow me to touch Results Laboratory Results: 08/19/17 04:09 08/22/17 04:40 08/22/17 04:40 Sodium 138.9 Potassium 4.1 Chloride 102 Carbon Dioxide 26 Anion Gap 11 BUN 21 H Creatinine 1.22 Est GFR ( Amer) > 60 Est GFR (Non-Af Amer) 58 L Glucose 114 H Calcium 8.8 Impressions: Foot X-Ray 08/16/17 14:40 IMPRESSION: Soft tissue gas surrounding the right 5th metatarsophalangeal joint worrisome for infection. Decreased bony density of the 5th metatarsal head and base left 5th toe proximal phalanx worrisome for osteomyelitis. Chest X-Ray 08/16/17 18:12 IMPRESSION: NO ACUTE RADIOGRAPHIC FINDING IN THE CHEST. NO SIGNIFICANT CHANGE FROM PRIOR STUDY. Assessment & Plan - Diagnosis (1) Acute kidney injury Is this a current diagnosis for this admission?: Yes Plan: Improved with IV hydration. Patient may have underlying CKD. Will need to follow up. (2) Diabetic infection of left foot Is this a current diagnosis for this admission?: Yes Plan: She is status post amputation of the left toe. Patient was on vancomycin and Zosyn. Patient was growing enterococcus in the wound therefore his antibiotics were de-escalated to ampicillin as of 08/20/2017. Patient leukocytosis have resolved. Surgery continues to follow. Dressing changes and wound care per surgery. Nursing staff has called for new wound VAC the current one is not working. Wound vac continues to have a leak. Awaiting final recs from surgery and for equiptment, home health to be arrange through the OR. (3) Hyponatremia Plan: Mild will continue to monitor. (4) Neuropathy Is this a current diagnosis for this admission?: Yes Plan: Secondary to his diabetes. Patient is currently on Lyrica (5) HTN (hypertension) Qualifiers: Hypertension type: essential hypertension Qualified Code(s): I10 - Essential (primary) hypertension Is this a current diagnosis for this admission?: Yes Plan: Continue metoprolol and diuretics. (6) Morbid obesity with BMI of 40.0-44.9, adult Is this a current diagnosis for this admission?: Yes Plan: Patient counseled on appropriate diet and the need for weight loss. (7) Tobacco dependency Is this a current diagnosis for this admission?: Yes Plan: Smoke patient counseled on tobacco cessation this may complicate his current medical situation. Nicotine patch in place (8) Type 1 diabetes Qualifiers: Diabetes mellitus complication status: with circulatory complication Diabetes mellitus complication detail: with peripheral angiopathy without gangrene Qualified Code(s): E10.51 - Type 1 diabetes mellitus with diabetic peripheral angiopathy without gangrene Is this a current diagnosis for this admission?: Yes Plan: Continue current insulin dosages. Continue monitoring blood glucose and adjust insulin accordingly. - Time Time Spent with patient: 15-24 minutes Anticipated discharge: Home with Homehealth - Awaiting arrangements for home health and additional needs to be arranged through the OR.
[2017-08-24] MEDS: ATORVASTATIN CALCIUM 40 MG TABLET PO SCH (16:43)
--- NOTE | 2017-08-24 16:49 | PDOC PROGRESS REPORT ---
Subjective Progress Note for:: 08/24/17 Subjective:: The patient is a 76 yom admitted with a diabetic foot infection. He now has a wound vac in place. The patient will need a wound [facility]. Once everything is in place discharge home can be arranged. The patient was taken to the operating room on 08/20/2017 and underwent amputation of the left fifth toe with left metatarsal bone resection. 08/17 wound culture has grown Enterococcus faecalis group D, Propionibacterium and Prevotella. Physical Exam Vital Signs: Temp Pulse Resp BP Pulse Ox 98.4 F 59 L 16 134/52 H 93 08/24/17 11:25 08/24/17 14:00 08/24/17 11:25 08/24/17 11:25 08/24/17 11:25 Intake & Output 08/23/17 08/24/17 08/25/17 06:59 06:59 06:59 Intake Total 536 830 780 Balance 536 830 780 Weight 133.5 kg 133.5 kg Additional comments: The patient is an elderly white male sitting in a chair. he is not in any distress. His cognition is normal. His lungs demonstrate scattered crackles. His cardiac exam today shows a neil pitched 1/6 rudy at LUSB. I did not appreciate this yesterday. His abdomen is obese and protuberant but soft. NABS are present. LE demonstrate 1 plus edema. Multiple lesions are present due to venous stasis dermatitis. Results Laboratory Results: 08/24/17 05:30 08/24/17 05:30 08/24/17 08/24/17 05:30 05:30 WBC 10.2 RBC 4.34 L Hgb 13.7 Hct 40.3 MCV 93 MCH 31.6 MCHC 34.1 RDW 14.9 H Plt Count 304 Seg Neutrophils % 76.2 Lymphocytes % 13.3 Monocytes % 8.1 Eosinophils % 1.6 Basophils % 0.8 Absolute Neutrophils 7.8 Absolute Lymphocytes 1.4 Absolute Monocytes 0.8 Absolute Eosinophils 0.2 Absolute Basophils 0.1 Sodium 139.4 Potassium 4.6 Chloride 100 Carbon Dioxide 27 Anion Gap 12 BUN 27 H Creatinine 1.41 H Est GFR ( Amer) 59 L Est GFR (Non-Af Amer) 49 L Glucose 84 Calcium 9.1 Magnesium 2.0 Impressions: Foot X-Ray 08/16/17 14:40 IMPRESSION: Soft tissue gas surrounding the right 5th metatarsophalangeal joint worrisome for infection. Decreased bony density of the 5th metatarsal head and base left 5th toe proximal phalanx worrisome for osteomyelitis. Chest X-Ray 08/16/17 18:12 IMPRESSION: NO ACUTE RADIOGRAPHIC FINDING IN THE CHEST. NO SIGNIFICANT CHANGE FROM PRIOR STUDY. Assessment & Plan - Diagnosis (1) Type 2 diabetes mellitus Is this a current diagnosis for this admission?: Yes Plan: The patient is receiving long-acting insulin, mealtime coverage and sliding scale with good control of blood sugars. (2) Acute kidney injury Is this a current diagnosis for this admission?: Yes Plan: Looking through this hospitalization creatinine is fairly stable. Labs were last checked yesterday. (3) Diabetic infection of left foot Is this a current diagnosis for this admission?: Yes Plan: Patient is status post amputation of the left fifth toe with left metatarsal bone resection. He is currently receiving ampicillin. A wound VAC has been placed. (4) Hyponatremia Is this a current diagnosis for this admission?: Yes Plan: Resolved. (5) Neuropathy Is this a current diagnosis for this admission?: Yes Plan: Continue Lyrica. (6) HTN (hypertension) Qualifiers: Hypertension type: essential hypertension Qualified Code(s): I10 - Essential (primary) hypertension Is this a current diagnosis for this admission?: Yes Plan: Continue metoprolol and Lasix. Currently, blood pressure is under good control. (7) Morbid obesity with BMI of 40.0-44.9, adult Is this a current diagnosis for this admission?: Yes (8) Tobacco dependency Is this a current diagnosis for this admission?: Yes Plan: Continue attempts at cessation. - Time Time Spent with patient: 15-24 minutes - Inpatient Certification Medical Necessity: Need for IV Antibiotics - Plan Summary Plan Summary: Once arrangements have been made for home health and home wound vac the patient will be discharged. At that time he can be changed to oral amoxicillin.
--- NOTE | 2017-08-24 17:07 | PROGRESS NOTE E ---
Progress Note NAME: DARIUS BREWER : 1940 AGE: 76Y DATE: 08/24/2017 ROOM: 534 SUBJECTIVE: His left leg is still quite swollen, but the VAC is in place. OBJECTIVE: He is afebrile and his white count yesterday was normal at 10.2. PLAN: The main concern is that he wants [facility], and that is being arranged. In the meantime, continue the VAC and the IV antibiotic therapy. DICTATING PHYSICIAN: JORDAN PAEZ M.D. [id number] PHY#: [id number] ID: [id number] JOB#: [id number] ACCT: [id number] cc: > MTDD
[2017-08-25 04:45] LABS: HEMATOCRIT 40.4 % (37.9-51.0); HGB HCT DIFFERENCE 1.6; MEAN CORPUSCULAR HEMOGLOBIN 32.1 pg (27.0-33.4); MEAN CORPUSCULAR HGB CONC 34.6 g/dL (32.0-36.0); MEAN CORPUSCULAR VOLUME 93 fl (80-97); RED BLOOD COUNT 4.36 10^6/uL (4.35-5.55); RED CELL DISTRIBUTION WIDTH 14.2 % (11.5-14.0)
[2017-08-25 05:08] LABS: ANION GAP 12 (5-19); BLOOD UREA NITROGEN 31 mg/dL (7-20); CALCIUM 8.9 mg/dL (8.4-10.2); CARBON DIOXIDE 29 mmol/L (22-30); CHLORIDE 98 mmol/L (98-107); CREATININE RESULT 1.66 mg/dL (0.52-1.25); GLUCOSE 120 mg/dL (75-110); POTASSIUM 4.5 mmol/L (3.6-5.0); SODIUM 138.5 mmol/L (137-145)
[2017-08-25] MEDS: HEPARIN SOD (PORCINE) 5,000 UNIT/ML 1 ML SYRINGE SUBCUT SCH ×3 (06:31→23:54)
[2017-08-25] MEDS: TALWIN NX PO SCH ×3 (06:31→23:55)
[2017-08-25] MEDS: AMPICILLIN SODIUM 2 GM in NORMAL SALINE 100 ML IV SCH ×4 (06:31→23:54)
[2017-08-25] MEDS: PREGABALIN 100 MG CAPSULE PO SCH ×3 (06:31→23:54)
[2017-08-25] MEDS: INSULIN REG, HUMAN 100 UNIT/ML 3 ML VIAL (PYX) SUBCUT SCH ×3 (08:52→17:56)
[2017-08-25] MEDS: METOPROLOL TARTRATE 50 MG TABLET PO SCH ×2 (10:02→23:53)
[2017-08-25] MEDS: INSULIN GLARGINE,HUM.REC.ANLOG 1,000 UNIT/10 ML UNIT SUBCUT SCH ×2 (10:03→23:54)
[2017-08-25] MEDS: DOCUSATE SODIUM 100 MG CAPSULE PO SCH ×2 (10:03→17:57)
--- NOTE | 2017-08-25 11:57 | PDOC PROGRESS REPORT ---
Subjective Progress Note for:: 08/25/17 Subjective:: The patient is a 76 yom admitted with a diabetic foot infection. He now has a wound vac in place. The patient will need a wound V[facility]. Once everything is in place discharge home can be arranged. The patient was taken to the operating room on 08/20/2017 and underwent amputation of the left fifth toe with left metatarsal bone resection. 08/17 wound culture has grown Enterococcus faecalis group D, Propionibacterium and Prevotella. Physical Exam Vital Signs: Temp Pulse Resp BP Pulse Ox 98.3 F 63 20 117/49 L 92 08/25/17 07:33 08/25/17 07:33 08/25/17 07:33 08/25/17 08:00 08/25/17 07:33 Intake & Output 08/24/17 08/25/17 08/26/17 06:59 06:59 06:59 Intake Total 830 1920 Balance 830 1920 Weight 133.5 kg Additional comments: The patient appears sad and somewhat angry today. He is angry that he has not yet been discharged. Other than that he does not appear to be in any distress. Overall, he is nontoxic. His facial appearance is normal and unchanged. His lungs continue to show scattered crackles. His cardiac exam demonstrates a regular rate and rhythm. He has a high-pitched grade 1-2 systolic ejection murmur at the left upper sternal border. This does not radiate. The abdomen is obese but soft. The ostomy bag has stool in it. There is no erythema around the bag. The abdomen is overall benign. Patient's lower extremities demonstrate great severe changes of venous stasis. The wound VAC has been applied to the left foot and covers the surgical area. Results Laboratory Results: 08/25/17 03:58 08/25/17 03:58 08/25/17 08/25/17 03:58 03:58 WBC 10.0 RBC 4.36 Hgb 14.0 Hct 40.4 MCV 93 MCH 32.1 MCHC 34.6 RDW 14.2 H Plt Count 294 Sodium 138.5 Potassium 4.5 Chloride 98 Carbon Dioxide 29 Anion Gap 12 BUN 31 H Creatinine 1.66 H Est GFR ( Amer) 49 L Est GFR (Non-Af Amer) 40 L Glucose 120 H Calcium 8.9 Magnesium 2.0 Impressions: Foot X-Ray 08/16/17 14:40 IMPRESSION: Soft tissue gas surrounding the right 5th metatarsophalangeal joint worrisome for infection. Decreased bony density of the 5th metatarsal head and base left 5th toe proximal phalanx worrisome for osteomyelitis. Chest X-Ray 08/16/17 18:12 IMPRESSION: NO ACUTE RADIOGRAPHIC FINDING IN THE CHEST. NO SIGNIFICANT CHANGE FROM PRIOR STUDY. Assessment & Plan - Diagnosis (1) Type 2 diabetes mellitus Is this a current diagnosis for this admission?: Yes Plan: The patient is receiving long-acting insulin, mealtime coverage and sliding scale with good control of blood sugars. (2) Acute kidney injury Is this a current diagnosis for this admission?: Yes Plan: Creatinine went up today. I will hold diuretics and supplemental potassium. Repeat labs in the morning. (3) Diabetic infection of left foot Is this a current diagnosis for this admission?: Yes Plan: Patient is status post amputation of the left fifth toe with left metatarsal bone resection. He is currently receiving ampicillin. A wound VAC has been placed. Upon discharge IV antibiotics will be changed to oral. (4) Hyponatremia Is this a current diagnosis for this admission?: Yes Plan: Resolved. (5) Neuropathy Is this a current diagnosis for this admission?: Yes Plan: Continue Lyrica. (6) HTN (hypertension) Qualifiers: Hypertension type: essential hypertension Qualified Code(s): I10 - Essential (primary) hypertension Is this a current diagnosis for this admission?: Yes Plan: Continue metoprolol and Lasix. Currently, blood pressure is under good control. (7) Morbid obesity with BMI of 40.0-44.9, adult Is this a current diagnosis for this admission?: Yes (8) Tobacco dependency Is this a current diagnosis for this admission?: Yes Plan: Continue attempts at cessation. - Time Time Spent with patient: 15-24 minutes - Inpatient Certification Medical Necessity: Need for IV Antibiotics - Wound VAC needs to be arranged for home use before discharge.
--- NOTE | 2017-08-25 15:02 | PROGRESS NOTE E ---
Progress Note NAME: DARIUS BREWER : 1940 AGE: 76Y DATE: 08/25/2017 ROOM: 534 SUBJECTIVE: Patient's left foot appears to be less swollen. The wound VAC is functioning well. He does not have any pains in the left foot. Arrangements are being made to have a wound VAC, [facility], to have it at his house. 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 DICTATING PHYSICIAN: JORDAN PAEZ M.D. [id number] PHY#: [id number] ID: [id number] JOB#: [id number] ACCT: [id number] cc: >
[2017-08-25] MEDS ORDERED: INFLUENZA ADLT QUAD (36MOS+) 2017-18 VAC 0.5 ML SYR IM PRN (15:26)
[2017-08-25] MEDS: ATORVASTATIN CALCIUM 40 MG TABLET PO SCH (17:57)
[2017-08-26 04:57] LABS: ANION GAP 10 (5-19); BLOOD UREA NITROGEN 33 mg/dL (7-20); CALCIUM 9.2 mg/dL (8.4-10.2); CARBON DIOXIDE 28 mmol/L (22-30); CHLORIDE 101 mmol/L (98-107); CREATININE RESULT 1.77 mg/dL (0.52-1.25); GLUCOSE 112 mg/dL (75-110); POTASSIUM 4.6 mmol/L (3.6-5.0); SODIUM 139.4 mmol/L (137-145)
[2017-08-26] MEDS: TALWIN NX PO SCH ×3 (06:56→23:29)
[2017-08-26] MEDS: AMPICILLIN SODIUM 2 GM in NORMAL SALINE 100 ML IV SCH (06:56)
[2017-08-26] MEDS: PREGABALIN 100 MG CAPSULE PO SCH ×3 (06:56→23:29)
[2017-08-26] MEDS: HEPARIN SOD (PORCINE) 5,000 UNIT/ML 1 ML SYRINGE SUBCUT SCH ×3 (06:56→23:30)
[2017-08-26] MEDS: DOCUSATE SODIUM 100 MG CAPSULE PO SCH ×2 (10:00→17:29)
[2017-08-26] MEDS: INSULIN REG, HUMAN 100 UNIT/ML 3 ML VIAL (PYX) SUBCUT SCH ×2 (10:07→16:40)
[2017-08-26] MEDS: INSULIN GLARGINE,HUM.REC.ANLOG 1,000 UNIT/10 ML UNIT SUBCUT SCH ×2 (10:07→23:31)
[2017-08-26] MEDS: METOPROLOL TARTRATE 50 MG TABLET PO SCH ×2 (10:07→23:30)
--- NOTE | 2017-08-26 10:29 | PDOC PROGRESS REPORT ---
Subjective Progress Note for:: 08/26/17 Subjective:: Wound VAC removed at bedside. Lots of foul smell in the room due to limited hygiene, and open left foot wound. Physical Exam Vital Signs: Temp Pulse Resp BP Pulse Ox 97.3 F 57 L 16 123/41 L 94 08/26/17 07:31 08/26/17 07:31 08/26/17 07:31 08/26/17 07:31 08/26/17 07:31 Intake & Output 08/25/17 08/26/17 08/27/17 06:59 06:59 06:59 Intake Total 1919 2019 Balance 1919 2019 Weight 133.5 kg General appearance: PRESENT: no acute distress Musculoskeletal exam: PRESENT: other - Dressing removed, VAC removed; wound with some drainage. There is macerated perimeter skin VAC punch overlap; nothing debrided in the recesses of the wound Results Laboratory Results: 08/25/17 03:58 08/26/17 03:55 08/26/17 03:55 Sodium 139.4 Potassium 4.6 Chloride 101 Carbon Dioxide 28 Anion Gap 10 BUN 33 H Creatinine 1.77 H Est GFR ( Amer) 45 L Est GFR (Non-Af Amer) 38 L Glucose 112 H Calcium 9.2 Impressions: Foot X-Ray 08/16/17 14:40 IMPRESSION: Soft tissue gas surrounding the right 5th metatarsophalangeal joint worrisome for infection. Decreased bony density of the 5th metatarsal head and base left 5th toe proximal phalanx worrisome for osteomyelitis. Chest X-Ray 08/16/17 18:12 IMPRESSION: NO ACUTE RADIOGRAPHIC FINDING IN THE CHEST. NO SIGNIFICANT CHANGE FROM PRIOR STUDY. Assessment & Plan - Diagnosis (1) Diabetic infection of left foot Is this a current diagnosis for this admission?: Yes Plan: Over 1 week status post left fifth ray amputation, open wound, with deep soft tissue and likely osteo-myelitis infection involving in her coccus faecalis Recommendations: Plan 1. Get patient in shower with sponge off. Wash wound. Reapply the wound VAC is available 2. Suggest continued intravenous antibiotics possibly using patient's port will see about accessing it as that has not happened in a while 3. Discharge planning assisting with final arrangements.
--- NOTE | 2017-08-26 11:52 | PDOC PROGRESS REPORT ---
Subjective Progress Note for:: 08/26/17 Subjective:: The patient is a 76 yom admitted with a diabetic foot infection. The patient was taken to the operating room on 08/20/2017 and underwent amputation of the left fifth toe with left metatarsal bone resection. 08/17 wound culture has grown Enterococcus faecalis group D, Propionibacterium and Prevotella. Arrangements were being made to discharge the patient with a wound VAC in place on oral antibiotics. However, the plan now will be to discharge the patient home with home health with scheduled dressing changes. In addition, surgery has now changed the patient to IV daptomycin. They wish to continue IV daptomycin at discharge. Physical Exam Vital Signs: Temp Pulse Resp BP Pulse Ox 97.3 F 57 L 16 123/41 L 94 08/26/17 07:31 08/26/17 07:31 08/26/17 07:31 08/26/17 07:31 08/26/17 07:31 Intake & Output 08/25/17 08/26/17 08/27/17 06:59 06:59 06:59 Intake Total 1919 2019 Balance 1919 2019 Weight 133.5 kg Additional comments: The patient is an elderly male. He is obese. He is in much better spirits today since he is anticipating that he may go home today. His mentation and cognition are normal. His facial appearance is normal. His dentition is fair. His lungs demonstrate scattered rhonchi both anteriorly and posteriorly. His cardiac exam demonstrates a regular rate and rhythm. Again, he has a high- pitched murmur which is at the left upper sternal border. The abdomen is obese but soft. Bowel sounds are present. The abdomen appears to be benign. I did not examine the stoma site today. The lower extremities are fairly unchanged. The patient has changes of chronic venous stasis. The wound VAC was removed off of the left foot. The patient has amputation of the fifth digit with part of the metatarsal. The wound appears to be pink. Granulation tissue is present. Results Laboratory Results: 08/25/17 03:58 08/26/17 03:55 08/26/17 03:55 Sodium 139.4 Potassium 4.6 Chloride 101 Carbon Dioxide 28 Anion Gap 10 BUN 33 H Creatinine 1.77 H Est GFR ( Amer) 45 L Est GFR (Non-Af Amer) 38 L Glucose 112 H Calcium 9.2 Impressions: Foot X-Ray 08/16/17 14:40 IMPRESSION: Soft tissue gas surrounding the right 5th metatarsophalangeal joint worrisome for infection. Decreased bony density of the 5th metatarsal head and base left 5th toe proximal phalanx worrisome for osteomyelitis. Chest X-Ray 08/16/17 18:12 IMPRESSION: NO ACUTE RADIOGRAPHIC FINDING IN THE CHEST. NO SIGNIFICANT CHANGE FROM PRIOR STUDY. Assessment & Plan - Diagnosis (1) Type 2 diabetes mellitus Is this a current diagnosis for this admission?: Yes Plan: The patient is receiving long-acting insulin, mealtime coverage and sliding scale with good control of blood sugars. (2) Acute kidney injury Is this a current diagnosis for this admission?: Yes Plan: Creatinine remains elevated. I will hold diuretics and supplemental potassium. Repeat labs in the morning if the patient remains in hospital. If he is discharged he can start diuretics tomorrow at half the previous dose. He will need f/u labs after discharge in one week. (3) Diabetic infection of left foot Is this a current diagnosis for this admission?: Yes Plan: Patient is status post amputation of the left fifth toe with left metatarsal bone resection. Surgery has now recommended that the patient be discharged on home daptomycin. The patient will need home health for dressing changes. When able, the wound VAC will be replaced. (4) Hyponatremia Is this a current diagnosis for this admission?: Yes Plan: Resolved. (5) Neuropathy Is this a current diagnosis for this admission?: Yes Plan: Continue Lyrica. (6) HTN (hypertension) Qualifiers: Hypertension type: essential hypertension Qualified Code(s): I10 - Essential (primary) hypertension Is this a current diagnosis for this admission?: Yes Plan: Continue metoprolol and Lasix. Currently, blood pressure is under good control. (7) Morbid obesity with BMI of 40.0-44.9, adult Is this a current diagnosis for this admission?: Yes (8) Tobacco dependency Is this a current diagnosis for this admission?: Yes - Time Time Spent with patient: 15-24 minutes - Inpatient Certification Medical Necessity: Need for IV Antibiotics
[2017-08-26] MEDS: DAPTOMYCIN 750 MG in NORMAL SALINE 50 ML IV SCH (14:37)
[2017-08-26] MEDS: ATORVASTATIN CALCIUM 40 MG TABLET PO SCH (17:30)
[2017-08-27] MEDS: TALWIN NX PO SCH ×3 (05:18→22:24)
[2017-08-27] MEDS: PREGABALIN 100 MG CAPSULE PO SCH ×3 (05:18→22:18)
[2017-08-27] MEDS: HEPARIN SOD (PORCINE) 5,000 UNIT/ML 1 ML SYRINGE SUBCUT SCH ×3 (05:18→22:18)
[2017-08-27 06:02] LABS: ANION GAP 8 (5-19); BLOOD UREA NITROGEN 32 mg/dL (7-20); CALCIUM 8.8 mg/dL (8.4-10.2); CARBON DIOXIDE 29 mmol/L (22-30); CHLORIDE 104 mmol/L (98-107); GLUCOSE 65 mg/dL (75-110); POTASSIUM 4.2 mmol/L (3.6-5.0); SODIUM 140.5 mmol/L (137-145)
[2017-08-27] MEDS ORDERED: DAPTOMYCIN INJ 500 MG VIAL IV SCH (10:00)
[2017-08-27] MEDS: DOCUSATE SODIUM 100 MG CAPSULE PO SCH ×2 (10:54→17:31)
[2017-08-27] MEDS: METOPROLOL TARTRATE 50 MG TABLET PO SCH (10:54)
[2017-08-27] MEDS: INSULIN GLARGINE,HUM.REC.ANLOG 1,000 UNIT/10 ML UNIT SUBCUT SCH ×2 (11:00→22:31)
[2017-08-27] MEDS: INSULIN REG, HUMAN 100 UNIT/ML 3 ML VIAL (PYX) SUBCUT SCH ×3 (11:03→17:27)
[2017-08-27] MEDS: DAPTOMYCIN 750 MG in NORMAL SALINE 50 ML IV SCH (14:11)
[2017-08-27] MEDS: ATORVASTATIN CALCIUM 40 MG TABLET PO SCH (17:31)
--- NOTE | 2017-08-27 17:57 | PDOC PROGRESS REPORT ---
Subjective Progress Note for:: 08/27/17 Subjective:: Patient states that he would like to go home. Patient was seen earlier this morning. Received call from pillowcase sewer stating that [facility]'s [facility]. She states that the [facility] recommends the patient be transported to their facility so that he can be seen by infectious disease so that antibiotic selection can be made. stage set up worker states that she spoke with patient in regards to this and he refused to be transferred to the [facility] for continuation of care so that he can be seen by infectious disease physician. stage set up worker states that the [facility] has stated that they would not continue IV antibiotics and also stated that patient would need to be seen as outpatient. Have recommended that social work contact [facility] to find out date and time of patient's ID appointment so that discharge can be corresponding with patient's follow-up appointment. Physical Exam Vital Signs: Temp Pulse Resp BP Pulse Ox 98.3 F 56 L 19 136/48 H 96 08/27/17 15:42 08/27/17 15:42 08/27/17 15:42 08/27/17 15:42 08/27/17 15:42 Intake & Output 08/26/17 08/27/17 08/28/17 06:59 06:59 06:59 Intake Total 2019 4473 1320 Balance 2019 4473 1320 Weight 133.5 kg General appearance: PRESENT: no acute distress, well-developed, well-nourished Head exam: PRESENT: atraumatic, normocephalic Eye exam: PRESENT: conjunctiva pink, EOMI. ABSENT: scleral icterus Ear exam: PRESENT: normal external ear exam Mouth exam: PRESENT: moist, tongue midline Neck exam: ABSENT: carotid bruit, JVD, lymphadenopathy, thyromegaly Respiratory exam: PRESENT: clear to auscultation jose. ABSENT: rales, rhonchi, wheezes Cardiovascular exam: PRESENT: RRR. ABSENT: diastolic murmur, rubs, systolic murmur Pulses: PRESENT: normal dorsalis pedis pul Vascular exam: PRESENT: normal capillary refill GI/Abdominal exam: PRESENT: normal bowel sounds, soft. ABSENT: distended, guarding, mass, organolmegaly, rebound, tenderness Rectal exam: PRESENT: deferred Extremities exam: PRESENT: other - Left foot with dressing in place Neurological exam: PRESENT: alert, awake, oriented to person, oriented to place , oriented to time, oriented to situation, CN II-XII grossly intact. ABSENT: motor sensory deficit Skin exam: PRESENT: other - Left foot with dressing in place Results Laboratory Results: 08/25/17 03:58 08/27/17 05:15 08/27/17 05:15 Sodium 140.5 Potassium 4.2 Chloride 104 Carbon Dioxide 29 Anion Gap 8 BUN 32 H Creatinine 1.50 H Est GFR ( Amer) 55 L Est GFR (Non-Af Amer) 46 L Glucose 65 L Calcium 8.8 Impressions: Foot X-Ray 08/16/17 14:40 IMPRESSION: Soft tissue gas surrounding the right 5th metatarsophalangeal joint worrisome for infection. Decreased bony density of the 5th metatarsal head and base left 5th toe proximal phalanx worrisome for osteomyelitis. Chest X-Ray 08/16/17 18:12 IMPRESSION: NO ACUTE RADIOGRAPHIC FINDING IN THE CHEST. NO SIGNIFICANT CHANGE FROM PRIOR STUDY. Assessment & Plan - Diagnosis (1) Diabetic infection of left foot Is this a current diagnosis for this admission?: Yes Plan: Continue patient on daptomycin. stage set up worker to find out when patient can be seen by infectious disease as outpatient so that discharge can correspond with follow-up appointment with ID to minimize any loss of IV antibiotic treatment days. (2) Acute kidney injury Is this a current diagnosis for this admission?: Yes Plan: In setting of chronic kidney disease stage III: Patient's renal function is improving we will continue to monitor. (3) Neuropathy Is this a current diagnosis for this admission?: Yes Plan: Secondary to diabetes: Continue Lyrica (4) Type 2 diabetes mellitus Qualifiers: Diabetes mellitus complication status: with circulatory complication Is this a current diagnosis for this admission?: Yes Plan: We will can continue current treatment plan. 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 transplanted heart: [place] heart Associated angina: without angina Qualified Code(s): I25.10 - Atherosclerotic heart disease of [place] coronary artery without angina pectoris Is this a current diagnosis for this admission?: No Plan: We will continue home medications. (7) CKD (chronic kidney disease), stage III Is this a current diagnosis for this admission?: Yes Plan: In setting of acute renal injury: Patient's renal function is improving. We will continue to monitor. (8) HLD (hyperlipidemia) Qualifiers: Hyperlipidemia type: unspecified Qualified Code(s): E78.5 - Hyperlipidemia , unspecified Is this a current diagnosis for this admission?: Yes (9) HTN (hypertension) Qualifiers: Hypertension type: essential hypertension Qualified Code(s): I10 - Essential (primary) hypertension Is this a current diagnosis for this admission?: Yes Plan: We will continue patient's home medications. (10) Morbid obesity with BMI of 40.0-44.9, adult Is this a current diagnosis for this admission?: Yes Plan: Encourage dietary changes. (11) Tobacco dependency Is this a current diagnosis for this admission?: Yes Plan: Encourage discontinue tobacco use. - Time Time Spent with patient: 25-34 minutes Anticipated discharge: Home with Homehealth - stage set up worker to arrange ID follow -[facility] appointment with [facility] prior to discussion of discharge home. Will also need to create a plan that will allow patient to continue to receive IV antibiotics so that there are no gaps in patient's care.
[2017-08-28] MEDS: METOPROLOL TARTRATE 50 MG TABLET PO SCH ×3 (00:17→23:48)
[2017-08-28] MEDS: HEPARIN SOD (PORCINE) 5,000 UNIT/ML 1 ML SYRINGE SUBCUT SCH ×3 (06:39→22:14)
[2017-08-28] MEDS: PREGABALIN 100 MG CAPSULE PO SCH ×3 (06:39→22:14)
[2017-08-28] MEDS: TALWIN NX PO SCH ×3 (06:51→22:14)
[2017-08-28 07:14] LABS: ABSOLUTE BASOPHILS # (AUTO) 0.1 10^3/uL (0.0-0.2); ABSOLUTE EOSINOPHILS # (AUTO) 0.2 10^3/uL (0.0-0.6); ABSOLUTE LYMPHOCYTES (AUTO) 1.4 10^3/uL (0.5-4.7); ABSOLUTE MONOCYTES (AUTO) 0.8 10^3/uL (0.1-1.4); ABSOLUTE NEUT (AUTO) 7.3 10^3/uL (1.7-8.2); BASOPHILS % (AUTO) 0.8 % (0-2); EOSINOPHILS % (AUTO) 1.7 % (0-6); HEMATOCRIT 39.1 % (37.9-51.0); HEMOGLOBIN 13.3 g/dL (13.5-17.0); HGB HCT DIFFERENCE 0.8; LYMPHOCYTES % (AUTO) 14.5 % (13-45); MEAN CORPUSCULAR HEMOGLOBIN 31.3 pg (27.0-33.4); MEAN CORPUSCULAR HGB CONC 34.1 g/dL (32.0-36.0); MEAN CORPUSCULAR VOLUME 92 fl (80-97); MONOCYTES % (AUTO) 8.1 % (3-13); RED BLOOD COUNT 4.25 10^6/uL (4.35-5.55); RED CELL DISTRIBUTION WIDTH 14.7 % (11.5-14.0); SEGMENTED NEUTROPHILS % (AUTO) 74.9 % (42-78); WHITE BLOOD COUNT 9.8 10^3/uL (4.0-10.5)
[2017-08-28 07:33] LABS: ANION GAP 9 (5-19); BLOOD UREA NITROGEN 29 mg/dL (7-20); CALCIUM 9.3 mg/dL (8.4-10.2); CARBON DIOXIDE 26 mmol/L (22-30); CHLORIDE 105 mmol/L (98-107); CREATININE RESULT 1.55 mg/dL (0.52-1.25); GLUCOSE 92 mg/dL (75-110); POTASSIUM 4.8 mmol/L (3.6-5.0); SODIUM 140.2 mmol/L (137-145)
[2017-08-28] MEDS: INSULIN GLARGINE,HUM.REC.ANLOG 1,000 UNIT/10 ML UNIT SUBCUT SCH ×2 (09:06→23:48)
[2017-08-28] MEDS: INSULIN REG, HUMAN 100 UNIT/ML 3 ML VIAL (PYX) SUBCUT SCH ×3 (09:15→17:39)
[2017-08-28] MEDS: DOCUSATE SODIUM 100 MG CAPSULE PO SCH ×2 (09:15→17:36)
[2017-08-28] MEDS ORDERED: NORMAL SALINE 1000 ML 500 ML IV ONE (12:38)
--- NOTE | 2017-08-28 12:42 | PDOC PROGRESS REPORT ---
Subjective Progress Note for:: 08/28/17 Subjective:: Pt states that he is doing ok. Pt states that he would like to go home as soon as possible. Physical Exam Vital Signs: Temp Pulse Resp BP Pulse Ox 97.6 F 60 18 158/49 H 93 08/28/17 07:29 08/28/17 09:15 08/28/17 07:29 08/28/17 09:15 08/28/17 07:29 Intake & Output 08/27/17 08/28/17 08/29/17 06:59 06:59 06:59 Intake Total 4473 1370 Balance 4473 1370 General appearance: PRESENT: no acute distress, well-developed, well-nourished Head exam: PRESENT: atraumatic, normocephalic Eye exam: PRESENT: conjunctiva pink, EOMI. ABSENT: scleral icterus Ear exam: PRESENT: normal external ear exam Mouth exam: PRESENT: moist, tongue midline Neck exam: ABSENT: carotid bruit, JVD, lymphadenopathy, thyromegaly Respiratory exam: PRESENT: clear to auscultation jose. ABSENT: rales, rhonchi, wheezes Cardiovascular exam: PRESENT: RRR. ABSENT: diastolic murmur, rubs, systolic murmur Pulses: PRESENT: normal dorsalis pedis pul Vascular exam: PRESENT: normal capillary refill GI/Abdominal exam: PRESENT: normal bowel sounds, soft. ABSENT: distended, guarding, mass, organolmegaly, rebound, tenderness Rectal exam: PRESENT: deferred Extremities exam: PRESENT: other - Left foot with dressing in place. Neurological exam: PRESENT: alert, awake, oriented to person, oriented to place , oriented to time, oriented to situation, CN II-XII grossly intact. ABSENT: motor sensory deficit Psychiatric exam: PRESENT: appropriate affect, normal mood. ABSENT: homicidal ideation, suicidal ideation Skin exam: PRESENT: dry, intact, warm, other - Left foot with dressing in place.. ABSENT: cyanosis, rash Results Laboratory Results: 08/28/17 06:55 08/28/17 06:55 08/28/17 08/28/17 06:55 06:55 WBC 9.8 RBC 4.25 L Hgb 13.3 L Hct 39.1 MCV 92 MCH 31.3 MCHC 34.1 RDW 14.7 H Plt Count 320 Seg Neutrophils % 74.9 Lymphocytes % 14.5 Monocytes % 8.1 Eosinophils % 1.7 Basophils % 0.8 Absolute Neutrophils 7.3 Absolute Lymphocytes 1.4 Absolute Monocytes 0.8 Absolute Eosinophils 0.2 Absolute Basophils 0.1 Sodium 140.2 Potassium 4.8 Chloride 105 Carbon Dioxide 26 Anion Gap 9 BUN 29 H Creatinine 1.55 H Est GFR ( Amer) 53 L Est GFR (Non-Af Amer) 44 L Glucose 92 Calcium 9.3 Impressions: Foot X-Ray 08/16/17 14:40 IMPRESSION: Soft tissue gas surrounding the right 5th metatarsophalangeal joint worrisome for infection. Decreased bony density of the 5th metatarsal head and base left 5th toe proximal phalanx worrisome for osteomyelitis. Chest X-Ray 08/16/17 18:12 IMPRESSION: NO ACUTE RADIOGRAPHIC FINDING IN THE CHEST. NO SIGNIFICANT CHANGE FROM PRIOR STUDY. Assessment & Plan - Diagnosis (1) Diabetic infection of left foot Is this a current diagnosis for this admission?: Yes Plan: Continue patient on daptomycin. preparation room worker to find out when patient can be seen by infectious disease as outpatient so that discharge can correspond with follow-up appointment with ID to minimize any loss of IV antibiotic treatment days. Still waiting to hear back from social media intern. Have also requested to see if patient can follow-up at the infusion center for antibiotic administration. Patient has agreed to come daily to our facility for continuation of antibiotic treatment. (2) Acute kidney injury Is this a current diagnosis for this admission?: Yes Plan: In setting of chronic kidney disease stage III: We will give 500 cc bolus (3) Neuropathy Is this a current diagnosis for this admission?: Yes Plan: Secondary to diabetes: Continue Lyrica (4) Type 2 diabetes mellitus Qualifiers: Diabetes mellitus complication status: with circulatory complication Is this a current diagnosis for this admission?: Yes Plan: We will can continue current treatment plan. 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 (6) CAD (coronary artery disease) Qualifiers: Coronary Disease-Associated Artery/Lesion type: [place] artery [place] vs. transplanted heart: [place] heart Associated angina: without angina Qualified Code(s): I25.10 - Atherosclerotic heart disease of [place] coronary artery without angina pectoris Is this a current diagnosis for this admission?: No Plan: We will continue home medications. (7) CKD (chronic kidney disease), stage III Is this a current diagnosis for this admission?: Yes Plan: In setting of acute renal injury: Will give NS bolus. (8) HLD (hyperlipidemia) Qualifiers: Hyperlipidemia type: unspecified Qualified Code(s): E78.5 - Hyperlipidemia , unspecified Is this a current diagnosis for this admission?: Yes Plan: Lipitor. (9) HTN (hypertension) Qualifiers: Hypertension type: essential hypertension Qualified Code(s): I10 - Essential (primary) hypertension Is this a current diagnosis for this admission?: Yes Plan: Will continue current medication. (10) Morbid obesity with BMI of 40.0-44.9, adult Is this a current diagnosis for this admission?: Yes Plan: Encourage dietary changes. (11) Tobacco dependency Is this a current diagnosis for this admission?: Yes Plan: Encourage discontinue tobacco use. - Time Time Spent with patient: 15-24 minutes Anticipated discharge: Home with Homehealth
[2017-08-28] MEDS ORDERED: NORMAL SALINE 500 ML IV ONE (13:30)
[2017-08-28] MEDS: DAPTOMYCIN 750 MG in NORMAL SALINE 50 ML IV SCH (14:39)
[2017-08-28] MEDS: ATORVASTATIN CALCIUM 40 MG TABLET PO SCH (17:41)
--- NOTE | 2017-08-28 23:43 | PDOC PROGRESS REPORT ---
Subjective Progress Note for:: 08/28/17 Subjective:: Denies any pains on the left foot Physical Exam Vital Signs: Temp Pulse Resp BP Pulse Ox 97.8 F 54 L 16 142/52 H 96 08/28/17 15:47 08/28/17 15:47 08/28/17 15:47 08/28/17 15:47 08/28/17 15:47 Intake & Output 08/27/17 08/28/17 08/29/17 06:59 06:59 06:59 Intake Total 4473 1370 1400 Balance 4473 1370 1400 Exam: Wet to dry dressings being applied to left foot while awaiting approval for VAC and IV antibiotics from the [place]. 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 Results Laboratory Results: 08/28/17 06:55 08/28/17 06:55 08/28/17 08/28/17 06:55 06:55 WBC 9.8 RBC 4.25 L Hgb 13.3 L Hct 39.1 MCV 92 MCH 31.3 MCHC 34.1 RDW 14.7 H Plt Count 320 Seg Neutrophils % 74.9 Lymphocytes % 14.5 Monocytes % 8.1 Eosinophils % 1.7 Basophils % 0.8 Absolute Neutrophils 7.3 Absolute Lymphocytes 1.4 Absolute Monocytes 0.8 Absolute Eosinophils 0.2 Absolute Basophils 0.1 Sodium 140.2 Potassium 4.8 Chloride 105 Carbon Dioxide 26 Anion Gap 9 BUN 29 H Creatinine 1.55 H Est GFR ( Amer) 53 L Est GFR (Non-Af Amer) 44 L Glucose 92 Calcium 9.3 Impressions: Foot X-Ray 08/16/17 14:40 IMPRESSION: Soft tissue gas surrounding the right 5th metatarsophalangeal joint worrisome for infection. Decreased bony density of the 5th metatarsal head and base left 5th toe proximal phalanx worrisome for osteomyelitis. Chest X-Ray 08/16/17 18:12 IMPRESSION: NO ACUTE RADIOGRAPHIC FINDING IN THE CHEST. NO SIGNIFICANT CHANGE FROM PRIOR STUDY. Assessment & Plan - Diagnosis (1) Acute kidney injury Is this a current diagnosis for this admission?: Yes (2) Diabetic infection of left foot Is this a current diagnosis for this admission?: Yes (3) Neuropathy Is this a current diagnosis for this admission?: Yes (4) Type 1 diabetes Qualifiers: Diabetes mellitus complication status: with circulatory complication Diabetes mellitus complication detail: with peripheral angiopathy without gangrene Qualified Code(s): E10.51 - Type 1 diabetes mellitus with diabetic peripheral angiopathy without gangrene Is this a current diagnosis for this admission?: Yes (5) Type 2 diabetes mellitus Qualifiers: Diabetes mellitus complication status: with circulatory complication Is this a current diagnosis for this admission?: Yes (6) Ulcer of foot due to diabetes Qualifiers: Diabetic foot ulcer location: toe Diabetes mellitus type: type 2 Laterality: left Non-pressure ulcer stage: with necrosis of bone Qualified Code(s): E11.621 - Type 2 diabetes mellitus with foot ulcer; L97.524 - 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 transplanted heart: [place] heart Associated angina: without angina Qualified Code(s): I25.10 - Atherosclerotic heart disease of [place] coronary artery without angina pectoris Is this a current diagnosis for this admission?: No - Time Time Spent with patient: 15-24 minutes - Plan Summary Plan Summary: grain mill worker working on approval by [place] for VAC and IV antibiotic
[2017-08-29] MEDS: HEPARIN SOD (PORCINE) 5,000 UNIT/ML 1 ML SYRINGE SUBCUT SCH ×2 (06:19→13:45)
[2017-08-29] MEDS: PREGABALIN 100 MG CAPSULE PO SCH ×2 (06:19→13:27)
[2017-08-29] MEDS: TALWIN NX PO SCH ×2 (06:19→14:28)
[2017-08-29 06:43] LABS: ANION GAP 8 (5-19); BLOOD UREA NITROGEN 27 mg/dL (7-20); CALCIUM 9.2 mg/dL (8.4-10.2); CARBON DIOXIDE 26 mmol/L (22-30); CHLORIDE 106 mmol/L (98-107); CREATININE RESULT 1.45 mg/dL (0.52-1.25); GLUCOSE 107 mg/dL (75-110); POTASSIUM 4.7 mmol/L (3.6-5.0); SODIUM 140.2 mmol/L (137-145)
[2017-08-29] MEDS: INSULIN GLARGINE,HUM.REC.ANLOG 1,000 UNIT/10 ML UNIT SUBCUT SCH (09:07)
[2017-08-29] MEDS: METOPROLOL TARTRATE 50 MG TABLET PO SCH (09:10)
[2017-08-29] MEDS: DOCUSATE SODIUM 100 MG CAPSULE PO SCH (09:15)
[2017-08-29] MEDS: INSULIN REG, HUMAN 100 UNIT/ML 3 ML VIAL (PYX) SUBCUT SCH ×3 (09:15→16:46)
[2017-08-29] MEDS: DAPTOMYCIN 750 MG in NORMAL SALINE 50 ML IV SCH (13:27)
--- NOTE | 2017-08-29 15:59 | PDOC DISCHARGE SUMMARY ---
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 Patient will have home health, [facility] V[facility]. Patient will follow with surgery and with PCP. (2) Acute kidney injury Is this a current diagnosis for this admission?: Yes Summary: Patient's renal function is improving. Patient was told to not take Lasix for the next 4 days. Patient's renal function will need to be monitored closely. (3) Neuropathy Is this a current diagnosis for this admission?: Yes Summary: Continue Lyrica (4) Type 2 diabetes mellitus Is this a current diagnosis for this admission?: Yes Summary: Continue current insulin regimen. 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 (6) CAD (coronary artery disease) Is this a current diagnosis for this admission?: No Summary: Stable (7) CKD (chronic kidney disease), stage III Is this a current diagnosis for this admission?: Yes Summary: With acute renal injury: Patient's renal function is returning to baseline. Patient told to not use Lasix for the next 4 days. Patient likes this dose was decreased to 20 mg p.o. twice daily (8) HLD (hyperlipidemia) Is this a current diagnosis for this admission?: Yes Summary: Statin (9) HTN (hypertension) Is this a current diagnosis for this admission?: Yes Summary: Continue current medications. (10) Morbid obesity with BMI of 40.0-44.9, adult Is this a current diagnosis for this admission?: Yes Summary: Encourage dietary changes. (11) Tobacco dependency Is this a current diagnosis for this admission?: Yes Summary: Encourage discontinuation of tobacco use - Additional Information Resuscitation Status: Full Code Discharge Diet: Cardiac, Diabetic Discharge Activity: Energy Conservation, Keep Legs Elevated, Slowly Increase Activity Home Medications: Atorvastatin Calcium [Lipitor 40 mg Tablet] 40 mg PO QPM 08/17/17 Cyanocobalamin (Vitamin B-12) [Vitamin B-12 1000 mcg Tablet] 1,000 mcg PO DAILY 08/17/17 Docusate Sodium 240 mg PO BID 08/17/17 Insulin Glargine,Hum.rec.anlog [Lantus Insulin 100 Unit/1 ml 10 ml] 54 unit SUBCUT Q12 08/17/17 Metoprolol Tartrate [Lopressor 50 mg Tablet] 50 mg PO Q12 08/17/17 Pentazocine HCl/Naloxone HCl [[place] Nx Tablet] 1 tab PO TID 08/17/17 Pregabalin [Lyrica 100 mg Capsule] 100 mg PO Q8 08/17/17 Daptomycin [Cubicin Inj 500 mg Vial] 750 mg IV DAILY@1400 vial 08/29/17 Furosemide [Lasix 20 mg Tablet] 20 mg PO BID #60 tablet 08/29/17 Insulin Regular, Human [Humulin R (Reg) Insulin 100 unit/mL] 5 unit SUBCUT AC # 1 vial 08/29/17 History of Present Illness Patient complains of: Left foot infection History of Present Illness: DARIUS BREWER is a 76 year old male presented to the hospital due to left foot infection. Hospital Course Hospital Course: Patient is a 67-year-old gentleman was admitted to our facility for left foot infection. Patient was seen by surgery where he was taken to the OR for debridement and as a result patient had amputation of the left fifth digit due to osteo-. Surgery continue to follow patient throughout hospitalization and recommended a wound VAC. Patient's wound culture demonstrated enterococcus faecalis, Prevotella, Propionibacterium. Patient was placed on daptomycin and told he would need to complete 6 weeks of daptomycin treatment. Patient was noted to have acute renal injury and during hospitalization most likely related to diuretics and antibiotics. Patient's renal function has continued to improve during hospitalization. Patient's renal function will need to be monitored closely. Patient was told not to resume Lasix for 4 days. Patient's Lasix dose was also decreased to 20 mg p.o. twice daily. Patient has done well otherwise during hospital stay. Physical Exam Vital Signs: Temp Pulse Resp BP Pulse Ox 97.6 F 51 L 20 134/62 H 96 08/29/17 11:56 08/29/17 11:56 08/29/17 11:56 08/29/17 11:56 08/29/17 11:56 Intake & Output 08/28/17 08/29/17 08/30/17 06:59 06:59 06:59 Intake Total 1370 1760 Balance 1370 1760 Weight 133.6 kg General appearance: PRESENT: no acute distress, well-developed, well-nourished Head exam: PRESENT: atraumatic, normocephalic Eye exam: PRESENT: conjunctiva pink, EOMI. ABSENT: scleral icterus Ear exam: PRESENT: normal external ear exam Mouth exam: PRESENT: moist, tongue midline Neck exam: PRESENT: carotid bruit Respiratory exam: PRESENT: clear to auscultation jose. ABSENT: rales, rhonchi, wheezes Cardiovascular exam: PRESENT: RRR. ABSENT: diastolic murmur, rubs, systolic murmur Pulses: PRESENT: normal dorsalis pedis pul GI/Abdominal exam: PRESENT: normal bowel sounds, soft. ABSENT: distended, guarding, mass, organolmegaly, rebound, tenderness Rectal exam: PRESENT: deferred Extremities exam: PRESENT: full ROM, pedal edema, other - Left foot with dressing in place. ABSENT: calf tenderness, clubbing Neurological exam: PRESENT: alert, awake, oriented to person, oriented to place , oriented to time, oriented to situation, CN II-XII grossly intact. ABSENT: motor sensory deficit Psychiatric exam: PRESENT: appropriate affect, normal mood. ABSENT: homicidal ideation, suicidal ideation Skin exam: PRESENT: other - Left foot with dressing in place Results Laboratory Results: 08/28/17 06:55 08/29/17 06:00 08/29/17 06:00 Sodium 140.2 Potassium 4.7 Chloride 106 Carbon Dioxide 26 Anion Gap 8 BUN 27 H Creatinine 1.45 H Est GFR ( Amer) 57 L Est GFR (Non-Af Amer) 47 L Glucose 107 Calcium 9.2 Impressions: Foot X-Ray 08/16/17 14:40 IMPRESSION: Soft tissue gas surrounding the right 5th metatarsophalangeal joint worrisome for infection. Decreased bony density of the 5th metatarsal head and base left 5th toe proximal phalanx worrisome for osteomyelitis. Chest X-Ray 08/16/17 18:12 IMPRESSION: NO ACUTE RADIOGRAPHIC FINDING IN THE CHEST. NO SIGNIFICANT CHANGE FROM PRIOR STUDY.
[2017-08-29 16:12] VITALS: BP 133/60
== END 2017-08-29 16:52 | disposition home health service (06) | DRG 617 ==
LOC: ER 14:06 → EH 17:02 → UNDOADMIN 17:02 → EH 20:57 → 4S 23:19 → ICU 08-17 22:37 → 5 08-19 00:10
PROVIDERS: ADMIT Family Medicine; ATTEND Family Medicine
PROC: 0Y6N0ZF Detachment at Left Foot, Partial 5th Ray, Open Approach (ICD-10-PCS; 2017-08-17)
PROC: 2W1VX6Z Compression of Left Toe using Pressure Dressing (ICD-10-PCS; 2017-08-20)
PROC: 3E0234Z Introduction of Serum, Toxoid and Vaccine into Muscle, Percutaneous Approach (ICD-10-PCS; principal; 2017-08-29)
DX: E11.69 Type 2 diabetes mellitus with other specified complication (principal); M86.9 Osteomyelitis, unspecified; Z68.41 Body mass index [BMI] 40.0-44.9, adult; L03.116 Cellulitis of left lower limb; E87.1 Hypo-osmolality and hyponatremia; E11.621 Type 2 diabetes mellitus with foot ulcer; L97.524 Non-pressure chronic ulcer of other part of left foot with necrosis of bone; L08.89 Other specified local infections of the skin and subcutaneous tissue; B96.89 Other specified bacterial agents as the cause of diseases classified elsewhere; B95.2 Enterococcus as the cause of diseases classified elsewhere; E11.40 Type 2 diabetes mellitus with diabetic neuropathy, unspecified; E11.22 Type 2 diabetes mellitus with diabetic chronic kidney disease; N18.3 Chronic kidney disease, stage 3 (moderate); I12.9 Hypertensive chronic kidney disease with stage 1 through stage 4 chronic kidney disease, or unspecified chronic kidney disease; M79.672 Pain in left foot; E78.5 Hyperlipidemia, unspecified; I25.10 Atherosclerotic heart disease of native coronary artery without angina pectoris; J44.9 Chronic obstructive pulmonary disease, unspecified; N17.9 Acute kidney failure, unspecified; F41.1 Generalized anxiety disorder; I87.8 Other specified disorders of veins; E66.01 Morbid (severe) obesity due to excess calories; F17.210 Nicotine dependence, cigarettes, uncomplicated; Z60.2 Problems related to living alone; Z23 Encounter for immunization; I25.2 Old myocardial infarction; Z79.4 Long term (current) use of insulin; Z79.899 Other long term (current) drug therapy
CPT/HCPCS: 01480; 36415; 71010; 80048; 80053; 80202; 81001; 82962; 83605; 83735; 83880; 85025; 85027; 87040; 87070; 87075; 87077; 87186; 87205; 88304; 88311; 90686; 93005; 93010; 93970; 94640; 96365; 96368; 99284; A6266; J0290; J0878; J1335; J1642; J1644; J1815; J2250; J2270; J2543; J2704; J3010; J3370; J3490; J7030; J7040; J7060; J7620

== ENCOUNTER → 2017-10-28 | Outpatient (CLI) | payer OTHER, MEDICARE | LOC: OD 09:00 | PROVIDERS: ATTEND Physician Assistant Medical | DX: E87.5 Hyperkalemia (principal) | CPT/HCPCS: 36415; 84132 ==

== ENCOUNTER → 2017-10-30 | Outpatient (CLI) | payer OTHER, MEDICARE | LOC: OD 10:14 | PROVIDERS: ATTEND Physician Assistant Medical | DX: E87.5 Hyperkalemia (principal) | CPT/HCPCS: 36415; 84132 ==

== ENCOUNTER → 2017-12-27 | Outpatient (CLI) | payer OTHER, MEDICARE ==
[2017-12-27 12:09] LABS: HEMATOCRIT 44.9 % (37.9-51.0); HEMOGLOBIN 15.1 g/dL (13.5-17.0); MEAN CORPUSCULAR HEMOGLOBIN 30.7 pg (27.0-33.4); MEAN CORPUSCULAR HGB CONC 33.6 g/dL (32.0-36.0); MEAN CORPUSCULAR VOLUME 91 fl (80-97); PLATELET COUNT 176 10^3/uL (150-450); RED BLOOD COUNT 4.92 10^6/uL (4.35-5.55); RED CELL DISTRIBUTION WIDTH 16.8 % (11.5-14.0); WHITE BLOOD COUNT 8.2 10^3/uL (4.0-10.5)
[2017-12-27 12:27] LABS: APPEARANCE,URINE SLIGHTLY-CLOUDY; BILIRUBIN,URINE NEGATIVE (NEGATIVE); COLOR,URINE STRAW; GLUCOSE, URINE NEGATIVE (NEGATIVE); KETONES,URINE NEGATIVE (NEGATIVE); LEUKOCYTE ESTERASE,URINE MODERATE (NEGATIVE); NITRITE,URINE NEGATIVE (NEGATIVE); PROTEIN,URINE NEGATIVE (NEGATIVE); URINE SPECIFIC GRAVITY 1.006; UROBILINOGEN,URINE NEGATIVE mg/dL (<2.0)
[2017-12-27 12:40] LABS: ANION GAP 15 (5-19); BLOOD UREA NITROGEN 37 mg/dL (7-20); CALCIUM 9.9 mg/dL (8.4-10.2); CARBON DIOXIDE 21 mmol/L (22-30); CHLORIDE 112 mmol/L (98-107); GLUCOSE 58 mg/dL (75-110); POTASSIUM 4.8 mmol/L (3.6-5.0); SODIUM 148.3 mmol/L (137-145)
[2017-12-27 12:45] LABS: UR PRO/CREAT RATIO RESULT 0.9 mg/mg (0.0-0.2); URINE CREATININE 15.5 mg/dL (22-328); URINE PROTEIN 13.4 mg/dL (<12)
== END ==
LOC: OD 11:07
PROVIDERS: ATTEND Physician Assistant Medical
DX: I12.9 Hypertensive chronic kidney disease with stage 1 through stage 4 chronic kidney disease, or unspecified chronic kidney disease (principal); N18.3 Chronic kidney disease, stage 3 (moderate); E11.9 Type 2 diabetes mellitus without complications
CPT/HCPCS: 36415; 80048; 81001; 82570; 84156; 85027

== ENCOUNTER 2018-12-13 17:06 | Emergency (ER) | payer OTHER, MEDICARE ==
--- NOTE | 2018-12-13 18:09 | ER Document Report ---
ED Medical Screen (RME) - General Chief Complaint: Foot Injury Stated Complaint: FOOT PAIN Time Seen by Provider: 12/13/18 17:59 Notes: Patient is here to be admitted for infections of the lower extremities. Patient has had chronic lymphedema of both lower extremities and long-term cellulitis of the legs. He developed an ulcer on the heel of his right foot and was seen yesterday at the [facility] who advised him to come here to be admitted. Patient said he had other things to do so he did not get here until today. He has chronic redness of both lower extremities with edema present. He has a denuded lesion on the heel of the right foot. Patient denies any fevers. Denies any chest pains. No shortness of breath or difficulty breathing. Of incidental note, patient accidentally took 10-12 Chantix pills that he mistakenly put in the wrong container where he keeps his medicines to be taken each day. He took these pills about 8 AM and then started vomiting and vomited at least 10 times until about noon. He has not vomited anymore since then. TRAVEL OUTSIDE OF THE [place] IN LAST 30 DAYS: No - Related Data Allergies/Adverse Reactions: tetracycline [Tetracycline] Allergy (Severe, Verified 12/13/18 17:08) Blisters Past Medical History - Social History Chew tobacco use (# tins/day): No Frequency of alcohol use: None Drug Abuse: None - Past Medical History Cardiac Medical History: Reports: Hx Congestive Heart Failure - Questionable history of same by records; patient denies., Hx DVT - Suspected Hx; patient on six-month regimen of Coumadin several years ago, Hx Heart Attack - 1995, Hx Hypercholesterolemia, Hx Hypertension Denies: Hx Atrial Fibrillation, Hx Coronary Artery Disease Pulmonary Medical History: Reports: Hx COPD Denies: Hx Asthma, Hx Bronchitis, Hx Pneumonia, Hx Sleep Apnea, Hx Tuberculosis Neurological Medical History: Denies: Hx Cerebrovascular Accident, Hx Seizures Endocrine Medical History: Reports: Hx Diabetes Mellitus Type 1. Denies: Hx Diabetes Mellitus Type 2, Hx Hyperthyroidism, Hx Hypothyroidism Renal/ Medical History: Denies: Hx Peritoneal Dialysis Malignancy Medical History: Reports Hx Colorectal Cancer - Status post low anterior resection, Reports Hx Skin Cancer GI Medical History: Denies: Hx Cirrhosis, Hx Gastroesophageal Reflux Disease, Hx Hepatitis, Hx Hiatal Hernia, Hx Ulcer Musculoskeltal Medical History: Reports Hx Arthritis Infectious Medical History: Denies: Hx Hepatitis Past Surgical History: Reports: Hx Abdominal Surgery - rectum anus and part of colon removed, colostomy, Hx Appendectomy, Hx Bowel Surgery - ilestomy, Hx Ileostomy - After low anterior resection for carcinoma, Hx Orthopedic Surgery - back. Denies: Hx Open Heart Surgery, Hx Pacemaker - Immunizations Hx Diphtheria, Pertussis, Tetanus Vaccination: Yes History of Influenza Vaccine for 08/2017 - 01/2018 Season: No Physical Exam - Vital signs Vitals: Temp Pulse Resp BP Pulse Ox 97.4 F 71 16 139/64 H 96 12/13/18 17:26 12/13/18 17:26 12/13/18 17:26 12/13/18 17:26 12/13/18 17:26 Course - Vital Signs Vital signs: Temp Pulse Resp BP Pulse Ox 97.4 F 71 16 139/64 H 96 12/13/18 17:26 12/13/18 17:26 12/13/18 17:26 12/13/18 17:26 12/13/18 17:26 Doctor's Discharge - Discharge Referrals: FREDY AGUILERA PA-C [Primary Care Provider] - Follow up as needed
--- NOTE | 2018-12-13 18:55 | RADIOLOGY REPORT (SQ) ---
EXAM DESCRIPTION: CHEST 2 VIEWS COMPLETED DATE/TIME: 12/13/2018 6:43 pm REASON FOR STUDY: Chronic lymphedema COMPARISON: 12/20/2016 EXAM PARAMETERS: NUMBER OF VIEWS: two views TECHNIQUE: Digital Frontal and Lateral radiographic views of the chest acquired. RADIATION DOSE: NA LIMITATIONS: none FINDINGS: LUNGS AND PLEURA: No opacities, masses or pneumothorax. No pleural effusion. MEDIASTINUM AND HILAR STRUCTURES: No masses or contour abnormalities. HEART AND VASCULAR STRUCTURES: Stable, mild cardiomegaly. No evidence for failure. BONES: No acute findings. HARDWARE: A right anterior chest wall Port-A-Cath demonstrates stable positioning. OTHER: No other significant finding. IMPRESSION: NO ACUTE RADIOGRAPHIC FINDING IN THE CHEST. TECHNICAL DOCUMENTATION: JOB ID: [id number] [employer]- All Rights Reserved Reading location - IP/workstation name: [email or web address]
--- NOTE | 2018-12-13 18:56 | RADIOLOGY REPORT (SQ) ---
EXAM DESCRIPTION: FOOT RIGHT COMPLETE COMPLETED DATE/TIME: 12/13/2018 6:43 pm REASON FOR STUDY: Chronic lymphedema and cellulitis, ulcer heel COMPARISON: None. EXAM PARAMETERS: NUMBER OF VIEWS: Three views. TECHNIQUE: AP, lateral and oblique radiographic images acquired of the right foot. LIMITATIONS: None. FINDINGS: MINERALIZATION: Normal. BONES: No acute fracture or dislocation. No worrisome bone lesions. JOINTS: No effusion. SOFT TISSUES: Dorsal forefoot soft tissue swelling. No radiopaque foreign body. OTHER: No other significant finding. IMPRESSION: NO FRACTURE.Dorsal forefoot soft tissue swelling. No radiopaque foreign body. TECHNICAL DOCUMENTATION: JOB ID: [id number] [place]-[id number] 2010 [employer]- All Rights Reserved Reading location - IP/workstation name: [email or web address]
[2018-12-13] MEDS ORDERED: CLINDAMYCIN HCL 150 MG CAPSULE PO ONE (19:22)
--- NOTE | 2018-12-13 19:25 | ER Document Report ---
ED General - General Chief Complaint: Foot Injury Stated Complaint: FOOT PAIN Time Seen by Provider: 12/13/18 17:59 Notes: Patient is a 78-year-old male with a past medical history of hypertension, insulin-dependent diabetes, morbid obesity, chronic tobacco abuse who presents with a wound to his right heel that has been present for the past 3 weeks. The patient has been following with podiatry, this wound has been evaluated and on 2 previous occasions of the patient reports that it is currently being monitored. He was seen by his general physician at the [place] today, referred to the emergency department for further assessment. Patient denies any associated fever or constitutional symptoms. He does note aching, throbbing pain to the area of the wound. 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 Has continued to walk on the area. Is not currently seeing any form of wound management for the wound. TRAVEL OUTSIDE OF THE [place] IN LAST 30 DAYS: No - Related Data Allergies/Adverse Reactions: tetracycline [Tetracycline] Allergy (Severe, Verified 12/13/18 17:08) Blisters Past Medical History - General Information source: Patient - Social History Smoking Status: Current Every Day Smoker Chew tobacco use (# tins/day): No Frequency of alcohol use: None Drug Abuse: None Lives with: Alone Family History: Reviewed & Not Pertinent Patient has suicidal ideation: No Patient has homicidal ideation: No - Past Medical History Cardiac Medical History: Reports: Hx Congestive Heart Failure - Questionable history of same by records; patient denies., Hx DVT - Suspected Hx; patient on six-month regimen of Coumadin several years ago, Hx Heart Attack - 1995, Hx Hypercholesterolemia, Hx Hypertension Denies: Hx Atrial Fibrillation, Hx Coronary Artery Disease Pulmonary Medical History: Reports: Hx COPD Denies: Hx Asthma, Hx Bronchitis, Hx Pneumonia, Hx Sleep Apnea, Hx Tuberculosis Neurological Medical History: Denies: Hx Cerebrovascular Accident, Hx Seizures Endocrine Medical History: Reports: Hx Diabetes Mellitus Type 1. Denies: Hx Diabetes Mellitus Type 2, Hx Hyperthyroidism, Hx Hypothyroidism Renal/ Medical History: Denies: Hx Peritoneal Dialysis Malignancy Medical History: Reports Hx Colorectal Cancer - Status post low anterior resection, Reports Hx Skin Cancer GI Medical History: Denies: Hx Cirrhosis, Hx Gastroesophageal Reflux Disease, Hx Hepatitis, Hx Hiatal Hernia, Hx Ulcer Musculoskeletal Medical History: Reports Hx Arthritis Infectious Medical History: Denies: Hx Hepatitis Past Surgical History: Reports: Hx Abdominal Surgery - rectum anus and part of colon removed, colostomy, Hx Appendectomy, Hx Bowel Surgery - ilestomy, Hx Ileostomy - After low anterior resection for carcinoma, Hx Orthopedic Surgery - back. Denies: Hx Open Heart Surgery, Hx Pacemaker - Immunizations Hx Diphtheria, Pertussis, Tetanus Vaccination: Yes Review of Systems - Review of Systems Notes: Constitutional: Negative for fever. HENT: Negative for sore throat. Eyes: Negative for visual changes. Cardiovascular: Negative for chest pain. Respiratory: Negative for shortness of breath. Gastrointestinal: Negative for abdominal pain, vomiting or diarrhea. Genitourinary: Negative for dysuria. Musculoskeletal: Positive for right foot pain Skin: Positive for wound to the right heel Neurological: Negative for headaches, weakness or numbness. 10 point ROS negative except as marked above and in HPI. Physical Exam - Vital signs Vitals: Temp Pulse Resp BP Pulse Ox 97.4 F 71 16 139/64 H 96 12/13/18 17:26 12/13/18 17:26 12/13/18 17:26 12/13/18 17:26 12/13/18 17:26 Interpretation: Normal Notes: PHYSICAL EXAMINATION: GENERAL: Elderly male, in no acute distress HEAD: Atraumatic, normocephalic. EYES: Pupils equal round and reactive to light, extraocular movements intact, sclera anicteric, conjunctiva are normal. ENT: nares patent, oropharynx clear without exudates. Moist mucous membranes. NECK: Normal range of motion, supple without lymphadenopathy LUNGS: Breath sounds clear to auscultation bilaterally and equal. No wheezes rales or rhonchi. HEART: Regular rate and rhythm without murmurs ABDOMEN: Soft, nontender, normoactive bowel sounds. No guarding, no rebound. No masses appreciated. EXTREMITIES: Normal range of motion, 2+ pitting edema in the bilateral lower 70s that is equal and symmetric NEUROLOGICAL: No focal neurological deficits. Moves all extremities spontaneously and on command. PSYCH: Normal mood, normal affect. SKIN: Warm, Dry, normal turgor changes of chronic venous stasis of the bilateral lower extremities. There is a 1 x 1 cm wound to the right heel with mild erythema but no purulent drainage. Mild pain on palpation of the area. Course - Re-evaluation Re-evalutation: 12/13/18 19:23 Patient presents with complaints of a right heel wound that has been present for at least 3 weeks. Patient denies any fever or constitutional symptoms. Notes minimal drainage from the area. There is an approximately 2 x 2 area of a pressure ulcer to the base of the right heel. No significant malodorous discharge. Minimal surrounding erythema. Patient has chronic venous stasis, diabetes and history of chronic kidney disease. At this point I do not believe that the patient requires immediate hospitalization given normal vitals, chronic duration of the wound and he reports that he is actually been followed by his parts counter associate who has looked at the wound several times and not advise any further intervention. [facility]. At this point I think the patient requires outpatient wound management but does not immediately require inpatient services. He has been empirically started on clindamycin. Foot x-ray without any evidence of osteomyelitis. At this time will discharge with return precautions and follow-up recommendations. Verbal discharge instructions given a the bedside and opportunity for questions given. Medication warnings reviewed. Patient is in agreement with this plan and has verbalized understanding of return precautions and the need for primary care follow-up in the next 24-72 hours. - Vital Signs Vital signs: Temp Pulse Resp BP Pulse Ox 97.3 F 73 18 138/92 H 94 12/13/18 20:14 12/13/18 20:14 12/13/18 20:14 12/13/18 20:14 12/13/18 20:14 - Diagnostic Test Radiology reviewed: Image reviewed, Reports reviewed Radiology results interpreted by me: 12/13/18 19:24 Foot x-ray: No evidence of acute osteomyelitis Discharge - Discharge Clinical Impression: Morbid obesity with BMI of 40.0-44.9, adult Open wound of right heel Qualifiers: Encounter type: initial encounter Qualified Code(s): S91.301A - Unspecified open wound, right foot, initial encounter Condition: Stable Disposition: HOME, SELF-CARE Additional Instructions: Your heel wound needs to be managed via wound management. At this point I do not believe you immediately require hospitalization. A wound dressing is in place and you should try to avoid walking on your heel as much as possible. Your being started on antibiotics. Please take as directed. You need to return to the emergency department immediately if you develop a fever of greater than 100.4 F, noticed worsening of the wound, have increasing pain to the area, develop body aches, chills, or any other symptoms that are worrisome to you. Please follow-up in wound management on Saturday or with your parts counter associate on Saturday. Prescriptions: Clindamycin HCl 300 mg PO TID #30 capsule Referrals: FREDY AGUILERA PA-C [ALLIED HEALTH PROFESSIONAL] - Follow up as needed GUNNER COLLINS MD [ACTIVE STAFF] - 12/15/18
[2018-12-13 20:23] VITALS: BP 138/92
--- NOTE | 2018-12-14 23:50 | EKG REPORT ---
SEVERITY:- ABNORMAL ECG - SINUS RHYTHM VENTRICULAR PREMATURE COMPLEX LVH WITH IVCD AND SECONDARY REPOL ABNRM : Confirmed by: Ann Marie Villanueva 14-Dec-2018 23:49:39
== END 2018-12-13 20:23 | disposition home or self-care (01) ==
LOC: ER 17:06
DX: S91.301A Unspecified open wound, right foot, initial encounter (principal); M79.671 Pain in right foot; X58.XXXA Exposure to other specified factors, initial encounter; E10.9 Type 1 diabetes mellitus without complications; Z79.4 Long term (current) use of insulin; E66.01 Morbid (severe) obesity due to excess calories; I50.9 Heart failure, unspecified; J44.9 Chronic obstructive pulmonary disease, unspecified; I11.0 Hypertensive heart disease with heart failure; F17.200 Nicotine dependence, unspecified, uncomplicated; Z68.41 Body mass index [BMI] 40.0-44.9, adult
CPT/HCPCS: 71046; 93005; 93010; 99284